=== PATIENT | female | born 1975 | race Two or more races ===

== ENCOUNTER 2017-03-29 19:49 | Inpatient (IN) | payer MEDICAID ==
[2017-03-29] VITALS (33 sets, daily range): BP systolic 100–263; BP diastolic 61–220; PULSE 67–104; RESP 18–24; TEMP 97.5–98.4; O2SAT 90–100
[~2017-03-29] VITALS: Ht 162.6 cm; Wt 75.0 kg
[~2017-03-29 19:49] MED LIST: LACTATED RINGER'S 1000 ML INJ 1,000 ML IV ONE; MORPHINE SULFATE PF 5 MG/10 ML VIAL EPIDURAL ONE; ONDANSETRON HCL 4 MG/2 ML VIAL IV PUSH ONE; OXYTOCIN 10 UNIT/ML AMP IV ONE
[2017-03-29] MEDS ORDERED: SODIUM CHLOR 0.9% 1000 ML INJ 1,000 ML IV SCH (20:05)
--- NOTE | 2017-03-29 20:09 | PD ---
HPI Chief Complaint: Abdominal Pain Time Seen by Provider: 20:07 Travel History International Travel<30 days: No Contact w/Intl Traveler<30days: No Traveled to known affect area: No History of Present Illness HPI c/o epig pain, nonrad, sharp, assoc with nausea and sweating, 02/11, no v/d/ ....patient is around 38 weeks gestation, is ...no allergy pt denies pshx and also pmhx at this point PFSH Past Medical History Medical History: Denies Significant Hx Diminished Hearing: No Tetanus Vaccination: Unknown Influenza Vaccination: No ?: LMP: DUE 04/10 : 7 Para: 7 Past Surgical History Surgical History: No Previous Surgery Social History Alcohol Use: No Tobacco Use: No Substance Use: No Allergies-Medications (Allergen,Severity, Reaction): Coded Allergies: No Known Allergies (Unverified , 03/29/17) Reported Meds & Prescriptions Reported Meds & Active Scripts Active No Active Prescriptions or Reported Medications Review of Systems Except as stated in HPI: all other systems reviewed are Neg Gastrointestinal: Positive: Nausea, Abdominal Pain (epig region pain onset 1 hr ago) Physical Exam Narrative GENERAL: SKIN: Warm and dry. HEAD: Atraumatic. Normocephalic. EYES: Pupils equal and round. No scleral icterus. No injection or drainage. ENT: No nasal bleeding or discharge. Mucous membranes pink and moist. NECK: Trachea midline. No JVD. CARDIOVASCULAR: Regular rate and rhythm. RESPIRATORY: No accessory muscle use. Clear to auscultation. Breath sounds equal bilaterally. GASTROINTESTINAL: Abdomen gravid about 9 months gestation, but has epig and ruq ttp...bedside manual showed cervix at fingertip without any vag bleeding MUSCULOSKELETAL: Extremities without clubbing, cyanosis, or edema. No obvious deformities. NEUROLOGICAL: Awake and alert. No obvious cranial nerve deficits. Motor grossly within normal limits. Five out of 5 muscle strength in the arms and legs. Normal speech. PSYCHIATRIC: Appropriate mood and affect; insight and judgment normal. Data Data Last Documented VS Vital Signs Date Time Temp Pulse Resp B/P (MAP) Pulse Ox O2 Delivery O2 Flow Rate FiO2 03/29/17 20:23 99 Room Air 03/29/17 20:00 24 03/29/17 19:57 98.4 104 Orders Orders Complete Blood Count With Diff (03/29/17 20:05) Comprehensive Metabolic Panel (03/29/17 20:05) Lipase (03/29/17 20:05) Iv Access Insert/Monitor (03/29/17 20:05) Ecg Monitoring (03/29/17 20:05) Oximetry (03/29/17 20:05) NPO (03/29/17 20:05) Morphine Inj (Morphine Inj) (03/29/17 20:15) Ondansetron Inj (Zofran Inj) (03/29/17 20:15) Sodium Chlor 0.9% 1000 Ml Inj (Ns 1000 M (03/29/17 20:05) Sodium Chloride 0.9% Flush (Ns Flush) (03/29/17 20:15) Electrocardiogram (03/29/17 20:05) Admit To Inpatient (03/29/17 ) Vital Signs (Adult) Q5MX4,Q15MX4,Q30MX2,Q1H (03/29/17 20:45) Activity Bed Rest (03/29/17 20:45) Intake + Output Q1H (03/29/17 20:45) Notify DrYemi Parameters (03/29/17 20:45) Heart CONTINUOUS (03/29/17 20:45) Urinary Catheter Management SUELLEN.Q8H (03/29/17 20:45) ^ Check Deep Tendon Reflexes Q1H (03/29/17 20:45) Lactated Ringer's 1000 Ml Inj (Lr 1000 M (03/29/17 21:00) Sodium Chloride 0.9% Flush (Ns Flush) (03/29/17 20:45) Sodium Chloride 0.9% Flush (Ns Flush) (03/29/17 21:00) Magnesium Sulfate 40 Gm Premix (Magnesiu (03/29/17 20:45) Labetalol Inj (Trandate Inj) (03/29/17 20:45) Calcium Gluconate Inj (Calcium Gluconate (03/29/17 20:45) Ondansetron Inj (Zofran Inj) (03/29/17 20:45) Urinalysis - C+S If Indicated (03/29/17 20:45) Magnesium Sulfate 4 Gm Premix (Magnesium (03/29/17 20:45) Ammonia (03/29/17 20:45) Inpatient Certification (03/29/17 ) Uric Acid (03/29/17 20:48) Heart (03/29/17 20:48) Amnioinfusion (03/29/17 20:48) Sodium Chlorid 0.9% 500 Ml Inj (Ns 500 M (03/29/17 21:00) Sodium Chlor 0.9% 1000 Ml Inj (Ns 1000 M (03/29/17 21:08) Lidocaine 1% Inj (50 Ml) (Xylocaine 1% I (03/29/17 21:00) Citric Acid-Sodium Citrate Liq (Bicitra (03/29/17 21:00) Fentanyl Inj (Fentanyl Inj) (03/29/17 21:00) Fentanyl Inj (Fentanyl Inj) (03/29/17 21:00) Hold Clot (03/29/17 20:48) Abo/Rh Blood Type (03/29/17 20:48) Resp Oxygen Non Rebreathe Mask (03/29/17 ) ^ Epidural / Intrathecal Infus (03/29/17 20:48) Oxytocin 30 Units-500ml Premix (Pitocin (03/29/17 21:00) Lidocaine 1% Inj (50 Ml) (Xylocaine 1% I (03/29/17 21:00) Light Mineral Oil (Muri-Lube Oil) (03/29/17 21:00) Lipase (03/29/17 20:48) Ob (2e) Additional Admit Info (03/29/17 20:59) Equip, Iv Pump Triple Use Of (03/29/17 20:59) Labs Laboratory Tests Test 03/29/17 20:10 03/29/17 20:48 White Blood Count 11.9 TH/MM3 Red Blood Count 5.01 MIL/MM3 Hemoglobin 16.1 GM/DL Hematocrit 46.9 % Mean Corpuscular Volume 93.6 FL Mean Corpuscular Hemoglobin 32.2 PG Mean Corpuscular Hemoglobin Concent 34.4 % Red Cell Distribution Width 13.4 % Platelet Count 171 TH/MM3 Mean Platelet Volume 12.5 FL Neutrophils (%) (Auto) 58.0 % Lymphocytes (%) (Auto) 35.8 % Monocytes (%) (Auto) 3.3 % Eosinophils (%) (Auto) 1.9 % Basophils (%) (Auto) 1.0 % Neutrophils # (Auto) 6.9 TH/MM3 Lymphocytes # (Auto) 4.3 TH/MM3 Monocytes # (Auto) 0.4 TH/MM3 Eosinophils # (Auto) 0.2 TH/MM3 Basophils # (Auto) 0.1 TH/MM3 CBC Comment AUTO DIFF Differential Total Cells Counted 100 Neutrophils % (Manual) 54 % Band Neutrophils % 2 % Lymphocytes % 34 % Monocytes % 8 % Eosinophils % 2 % Neutrophils # (Manual) 6.7 TH/MM3 Differential Comment FINAL DIFF MANUAL Atypical Lymphocytes % Platelet Estimate NORMAL Platelet Morphology Comment ENLARGED Ovalocytes 1+ Blood Urea Nitrogen 15 MG/DL Creatinine 0.72 MG/DL Random Glucose 100 MG/DL Total Protein 7.6 GM/DL Albumin 2.9 GM/DL Calcium Level 8.6 MG/DL Alkaline Phosphatase 275 U/L Aspartate Amino Transf (AST/SGOT) 105 U/L Alanine Aminotransferase (ALT/SGPT) 89 U/L Total Bilirubin 0.5 MG/DL Sodium Level 138 MEQ/L Potassium Level 3.6 MEQ/L Chloride Level 106 MEQ/L Carbon Dioxide Level 19.8 MEQ/L Anion Gap 12 MEQ/L Estimat Glomerular Filtration Rate 88 ML/MIN Lipase 114 U/L 110 U/L Uric Acid 6.7 MG/DL Ammonia 28 MCMOL/L MDM Medical Decision Making Medical Screen Exam Complete: Yes Emergency Medical Condition: Yes Medical Record Reviewed: Yes Differential Diagnosis gb disease v pancreatitis v labor v distress V HELLP V PREECLAMPSIA Narrative Course patient upon evaluation no evidence of active labor, no rupture of membranes clinically, cervix fingertip....however will send patient to ob for further evaluation. Procedures Procedure Narrative bedside ultrasound: showed enlarged gallbladder with multiple gravel like stones/sludge, no perichol fluid, no thickened gb wall. bedside limited pelvic: noted active heart tones and activity. Physician Communication Physician Communication care turned over to dr dumont for further care. Diagnosis Primary Impression: epigastric pain in Admitting Information Admitting Physician Requests: Observation Scripts No Active Prescriptions or Reported Meds Ashok Ortega MD Mar 29, 2017 20:09
[2017-03-29] MEDS ORDERED: MORPHINE SULFATE 4 MG/ML INJ IV PUSH ONE (20:15)
[2017-03-29] MEDS ORDERED: SODIUM CHLORIDE 0.9% FLUSH 10 ML FLUSH IV FLUSH PRN ×2 (20:15→23:15)
[2017-03-29] MEDS ORDERED: ONDANSETRON HCL 4 MG/2 ML VIAL IVP ONE (20:15)
[2017-03-29 20:42] LABS: AUTOMATED NEUTROPHIL # 6.9 TH/MM3 (1.8-7.7); BASOPHIL # 0.1 TH/MM3 (0-0.2); EOSINOPHIL # 0.2 TH/MM3 (0-0.4); EOSINOPHIL % 1.9 % (0.0-4.0); HEMATOCRIT 46.9 % (35.0-46.0); LYMPH % 35.8 % (9.0-44.0); LYMPHOCYTE # 4.3 TH/MM3 (1.0-4.8); MEAN CELL VOLUME 93.6 FL (80.0-100.0); MEAN CORPUSCULAR HEMOGLOBIN 32.2 PG (27.0-34.0); MEAN CORPUSCULAR HGB CONC 34.4 % (32.0-36.0); MONO % 3.3 % (0.0-8.0); PLATELET COUNT 171 TH/MM3 (150-450); RED BLOOD COUNT 5.01 MIL/MM3 (4.00-5.30); RED CELL DISTRIBUTION WIDTH 13.4 % (11.6-17.2); WHITE BLOOD COUNT 11.9 TH/MM3 (4.0-11.0)
[2017-03-29 20:45] LABS: HEMO FLAGS AUTO DIFF
[2017-03-29] MEDS ORDERED: ONDANSETRON HCL 4 MG/2 ML VIAL IV PRN (20:45)
[2017-03-29] MEDS ORDERED: SODIUM CHLORIDE 0.9% FLUSH 5 ML FLUSH IV PRN (20:45)
[2017-03-29] MEDS ORDERED: CALCIUM GLUCONATE 10% 1 GM/10 ML VIAL IV PUSH PRN (20:45)
[2017-03-29] MEDS ORDERED: MAGNESIUM SULFATE 40 GM PREMIX 1,000 ML IV SCH (20:45)
[2017-03-29] MEDS ORDERED: MAGNESIUM SULFATE 4 GM PREMIX 100 ML IV ONE (20:45)
[2017-03-29] MEDS ORDERED: LABETALOL HCL 100 MG/20 ML VIAL IV PUSH PRN (20:45)
[2017-03-29 20:49] LABS: ANION GAP 12 MEQ/L (5-15); AST (GOT) 105 U/L (15-37); BICARBONATE 19.8 MEQ/L (21.0-32.0); BLOOD UREA NITROGEN 15 MG/DL (7-18); CHLORIDE 106 MEQ/L (98-107); GLOMERULAR FILTRATION RATE 88 ML/MIN (>89); POTASSIUM 3.6 MEQ/L (3.5-5.1); SODIUM (NA) 138 MEQ/L (136-145)
[2017-03-29 20:50] LABS: ALT (GPT) 89 U/L (10-53)
[2017-03-29 20:52] LABS: ALKALINE PHOSPHATASE 275 U/L (45-117); TOTAL BILIRUBIN ADULT 0.5 MG/DL (0.2-1.0)
[2017-03-29] MEDS ORDERED: MINERAL OIL 10 ML VIAL TOPICAL PRN (21:00)
[2017-03-29] MEDS ORDERED: OXYTOCIN 30 UNITS-500ML PREMIX 500 ML IV ONE ×2 (21:00→23:15)
[2017-03-29] MEDS ORDERED: LACTATED RINGER'S 1000 ML INJ 1,000 ML IV SCH (21:00)
[2017-03-29] MEDS ORDERED: SODIUM CHLORID 0.9% 500 ML INJ 500 ML IV PRN (21:00)
[2017-03-29] MEDS ORDERED: LIDOCAINE HCL 1% 50 ML VIAL I-DERMAL PRN (21:00)
[2017-03-29] MEDS ORDERED: CITRIC ACID-SODIUM CITRATE LIQ 30 ML UDC PO SCH (21:00)
[2017-03-29] MEDS ORDERED: LIDOCAINE HCL 1% 50 ML VIAL INFIL PRN (21:00)
[2017-03-29] MEDS ORDERED: SODIUM CHLORIDE 0.9% FLUSH 5 ML FLUSH IV SCH (21:00)
--- NOTE | 2017-03-29 21:07 | PD ---
HPI Chief Complaint Severe epigastric pain Date Seen: Mar 29, 2017 Time Seen: 20:52 Travel History International Travel<30 Days: No Contact w/Intl Traveler<30Days: No Known Affected Area: No History of Present Illness HPI 42-year-old who is at 38 weeks 5 days who sees Jenni Brito for her care presents here transferred from the main emergency department due to severe epigastric pain. Patient was seen in the main emergency department and an EKG was performed which was normal and an right upper quadrant ultrasound showed gallstones. Blood work was ordered but there are no results yet, she was given morphine for pain the patient states that she still has severe epigastric pain that started approximately one hour ago. Patient denies any antepartum complications at this time. Patient denies vaginal bleeding or uterine contractions Weeks Gestation: 38 (38.5) Para: 7 : 8 History Past Medical History Medical History: Denies Significant Hx Obstetric History Obstetric History 7 Past Surgical History Surgical History: No Previous Surgery Family History Family History: Negative Social History Alcohol Use: No Tobacco Use: No Substance Abuse: No Allergies-Medications (Allergen,Severity, Reaction): Coded Allergies: No Known Allergies (Unverified , 03/29/17) Home Meds No Active Prescriptions or Reported Meds Review of Systems Except as stated in HPI: all other systems reviewed are Neg Physical Exam Vital Signs Date Time Temp Pulse Resp B/P (MAP) Pulse Ox O2 Delivery O2 Flow Rate FiO2 03/29/17 20:23 99 Room Air 03/29/17 20:23 03/29/17 20:00 24 03/29/17 19:57 98.4 104 24 137/96 (110) 98 03/29/17 19:50 98.0 76 22 186/100 (128) 90 Room Air Narrative GENERAL: Well-nourished, well-developed patient. Patient is writhing in the bed and is unable to stay still. SKIN: Warm and dry. HEAD: Normocephalic and atraumatic. EYES: No scleral icterus. No injection or drainage. ENT: No nasal drainage noted. Mucous membranes pink. Airway patent. NECK: Supple, trachea midline. No JVD. CARDIOVASCULAR: Regular rate and rhythm without murmurs, gallops, or rubs. RESPIRATORY: Breath sounds equal bilaterally. No accessory muscle use. ABDOMEN/GI: Abdomen tender in the epigastric area bowel sounds present, no rebound, some guarding. Gravid to [-38] weeks size Fundal Height: [-] GENITOURINARY: External Genitalia: intact and normal in appearance BUS glands: [-Normal] Cervix: [-Posterior] Dilatation: [-1] Effacement: [-80] Station: [--2] Presentation: [-Vertex] Membranes: [intact or] Uterine Contractions: [Absent] FHT's: Category: [1-] Baseline: [-140] Reactive: [Moderate-] Variability: [-Moderate] Decels: [-Absent] EXTREMITIES: No cyanosis or edema. BACK: Nontender without obvious deformity. No CVA tenderness. NEUROLOGICAL: Awake and alert. Motor and sensory grossly within normal limits. Five out of 5 muscle strength in all muscle groups. Normal speech. Data Data Vital Signs Reviewed: Yes Orders Orders Complete Blood Count With Diff (03/29/17 20:05) Comprehensive Metabolic Panel (03/29/17 20:05) Lipase (03/29/17 20:05) Us Abdomen Gallbladder (03/29/17 ) Iv Access Insert/Monitor (03/29/17 20:05) Ecg Monitoring (03/29/17 20:05) Oximetry (03/29/17 20:05) NPO (03/29/17 20:05) Morphine Inj (Morphine Inj) (03/29/17 20:15) Ondansetron Inj (Zofran Inj) (03/29/17 20:15) Sodium Chlor 0.9% 1000 Ml Inj (Ns 1000 M (03/29/17 20:05) Sodium Chloride 0.9% Flush (Ns Flush) (03/29/17 20:15) Electrocardiogram (03/29/17 20:05) Admit To Inpatient (03/29/17 ) Vital Signs (Adult) Q5MX4,Q15MX4,Q30MX2,Q1H (03/29/17 20:45) Activity Bed Rest (03/29/17 20:45) Intake + Output Q1H (03/29/17 20:45) Notify Parameters (03/29/17 20:45) Heart CONTINUOUS (03/29/17 20:45) Urinary Catheter Management SUELLEN.Q8H (03/29/17 20:45) ^ Check Deep Tendon Reflexes Q1H (03/29/17 20:45) Diet Npo (03/30/17 Breakfast) Lactated Ringer's 1000 Ml Inj (Lr 1000 M (03/29/17 20:45) Sodium Chloride 0.9% Flush (Ns Flush) (03/29/17 20:45) Sodium Chloride 0.9% Flush (Ns Flush) (03/29/17 21:00) Magnesium Sulfate 40 Gm Premix (Magnesiu (03/29/17 20:45) Labetalol Inj (Trandate Inj) (03/29/17 20:45) Calcium Gluconate Inj (Calcium Gluconate (03/29/17 20:45) Ondansetron Inj (Zofran Inj) (03/29/17 20:45) Uric Acid (03/29/17 20:45) Urinalysis - C+S If Indicated (03/29/17 20:45) Magnesium Sulfate 4 Gm Premix (Magnesium (03/29/17 20:45) Lipase (03/29/17 20:45) Ammonia (03/29/17 20:45) Inpatient Certification (03/29/17 ) Uric Acid (03/29/17 20:48) Heart (03/29/17 20:48) Amnioinfusion (03/29/17 20:48) Sodium Chlorid 0.9% 500 Ml Inj (Ns 500 M (03/29/17 21:00) Sodium Chlor 0.9% 1000 Ml Inj (Ns 1000 M (03/29/17 21:08) Lidocaine 1% Inj (50 Ml) (Xylocaine 1% I (03/29/17 21:00) Citric Acid-Sodium Citrate Liq (Bicitra (03/29/17 21:00) Fentanyl Inj (Fentanyl Inj) (03/29/17 21:00) Fentanyl Inj (Fentanyl Inj) (03/29/17 21:00) Hold Clot (03/29/17 20:48) Abo/Rh Blood Type (03/29/17 20:48) Resp Oxygen Non Rebreathe Mask (03/29/17 ) ^ Epidural / Intrathecal Infus (03/29/17 20:48) Oxytocin 30 Units-500ml Premix (Pitocin (03/29/17 21:00) Lidocaine 1% Inj (50 Ml) (Xylocaine 1% I (03/29/17 21:00) Light Mineral Oil (Muri-Lube Oil) (03/29/17 21:00) Labs Laboratory Tests Test 03/29/17 20:10 White Blood Count 11.9 Red Blood Count 5.01 Hemoglobin 16.1 Hematocrit 46.9 Mean Corpuscular Volume 93.6 Mean Corpuscular Hemoglobin 32.2 Mean Corpuscular Hemoglobin Concent 34.4 Red Cell Distribution Width 13.4 Platelet Count 171 Mean Platelet Volume 12.5 Neutrophils (%) (Auto) 58.0 Lymphocytes (%) (Auto) 35.8 Monocytes (%) (Auto) 3.3 Eosinophils (%) (Auto) 1.9 Basophils (%) (Auto) 1.0 Neutrophils # (Auto) 6.9 Lymphocytes # (Auto) 4.3 Monocytes # (Auto) 0.4 Eosinophils # (Auto) 0.2 Basophils # (Auto) 0.1 CBC Comment AUTO DIFF Blood Urea Nitrogen 15 Creatinine 0.72 Random Glucose 100 Albumin 2.9 Calcium Level 8.6 Aspartate Amino Transf (AST/SGOT) 105 Alanine Aminotransferase (ALT/SGPT) 89 Sodium Level 138 Potassium Level 3.6 Chloride Level 106 Carbon Dioxide Level 19.8 Anion Gap 12 Estimat Glomerular Filtration Rate 88 Lipase 114 MDM Plan 42-year-old who is at 38 weeks 5 days presents with severe epigastric pain. - Category 1 heart rate tracing GBS unknown #1 epigastric pain-very difficult to assess the patient is somewhat out of control and cannot stay still. Initial blood pressure was 192/140 so will start severe hypertension protocol with magnesium sulfate IV and IV antihypertensives to stabilize the patient at this point. Labs are still pending but EKG rules out a cardiac concern at this point. #2 severe preeclampsia - Increased hematocrit, slightly decreased platelets, and elevated AST along with severely elevated blood pressure. Patient understands that may be warranted after stabilizing blood pressure #3 - Advanced maternal age Diagnosis Diagnosis: Primary Impression: 38 weeks gestation of Additional Impressions: Severe pre-eclampsia Advanced maternal age in multigravida Scripts No Active Prescriptions or Reported Meds Dayana Bartholomew MD Mar 29, 2017 21:07
[2017-03-29] MEDS ORDERED: SODIUM CHLOR 0.9% 1000 ML INJ 1,000 ML IV PRN (21:08)
[2017-03-29] MEDS ORDERED: ONDANSETRON HCL 4 MG/2 ML VIAL IV PUSH PRN (21:15)
[2017-03-29 21:18] LABS: URIC ACID 6.7 MG/DL (2.6-6.0)
[2017-03-29 21:25] LABS: BANDS 2 % (0-6); EOSINOPHILS 2 % (0-4); NEUTROPHIL # MANUAL DIFF 6.7 TH/MM3 (1.8-7.7); POLYS (SEG NEUTROPHILS) 54 % (16-70); WBC DIFF SAMPLE 100
[2017-03-29 21:31] LABS: PLATELET ESTIMATE SMEAR NORMAL (NORMAL); PLATELET MORPHOLOGY ENLARGED (NORMAL); SCAN/DIFF FINAL DIFF MANUAL
[2017-03-29 21:32] LABS: OVALOCYTES 1+ (NORMAL)
[2017-03-29] MEDS ORDERED: ceFAZolin 2 GM PREMIX 50 ML IV SCH (21:45)
[2017-03-29 21:50] LABS: BLOOD, URINE SMALL (NEG); GLUCOSE,URINE NEG (NEG); KETONE, URINE NEG (NEG); NITRITE,URINE NEG (NEG); SQUAMOUS EPITHELIAL CELL URINE <1 /hpf (0-5); URINE COLOR YELLOW (YELLW/STRAW)
[2017-03-29 21:53] LABS: COMMENT (UR) CATH-CULT NOT IND; CULTURE IF INDICATED CATH CULTURE NOT IND
--- NOTE | 2017-03-29 23:03 | PD.OB.DELI ---
Procedure Note Section Procedure Pre Op Diagnosis: (1) Severe pre-eclampsia (2) 38 weeks gestation of (3) Advanced maternal age in multigravida Post Op Diagnosis: Performed by Dayana Bartholomew Procedure: Primary Low Transverse Sec, Other (bilateral midsegment salpingectomy) Indication for delivery: Maternal medical problems Previous condition: None Informed consent obtained: For anesthesia, For procedure Confirmed correct: Time-out taken Anesthesia: Spinal Medication prior to procedure: Antibiotics, IV, Magnesium Sulfate Monitoring during procedure: Blood pressure monitoring, Pulse oximetry Urinary catheter: Inserted using sterile technique, To dependent drainage Sterile preparation: Duraprep Position: Supine with wedge to left side Operative Features Skin Incision: Pfannenstiel Uterine Incision: Low transverse w/knife / blunt ext Membranes Ruptured: Artificially, Appearance of fluid (clear) Presentation: Occiput anterior Delivery date: Mar 29, 2017 Delivery time: 22:31 Delivery of : Uneventful : Male, Single One Minute : 8 Five Minute : 9 Weight: 2660gms Status of infant: Viable Placenta delivered: Intact Medications: Antibiotics Estimated blood loss: 800cc Procedure tolerated: Well Maternal Condition: Stable Condition: Stable Dayana Bartholomew MD Mar 29, 2017 23:03
[2017-03-29] MEDS ORDERED: oxyCODONE/ACETAMINOPHEN 5 MG/325 MG TAB PO PRN ×2 (23:15)
[2017-03-29] MEDS ORDERED: SIMETHICONE 80 MG CHEWABLE TAB PO PRN (23:15)
[2017-03-30] VITALS (153 sets, daily range): BP systolic 98–142; BP diastolic 67–97; PULSE 77–106; RESP 14–18; TEMP 96.7–98.4; O2SAT 94–100
[2017-03-30] MEDS: LACTATED RINGER'S 1000 ML INJ 1,000 ML IV SCH ×2 (04:03→14:03)
[2017-03-30 06:02] LABS: AUTOMATED NEUTROPHIL # 12.4 TH/MM3 (1.8-7.7); BASOPHIL % 0.3 % (0.0-2.0); HEMATOCRIT 33.5 % (35.0-46.0); LYMPH % 6.9 % (9.0-44.0); MEAN CELL VOLUME 92.4 FL (80.0-100.0); MEAN CORPUSCULAR HEMOGLOBIN 31.9 PG (27.0-34.0); MEAN CORPUSCULAR HGB CONC 34.5 % (32.0-36.0); MONO % 6.6 % (0.0-8.0); NEUT % 86.2 % (16.0-70.0); PLATELET COUNT 40 TH/MM3 (150-450); RED BLOOD COUNT 3.62 MIL/MM3 (4.00-5.30); RED CELL DISTRIBUTION WIDTH 13.2 % (11.6-17.2); WHITE BLOOD COUNT 14.3 TH/MM3 (4.0-11.0)
[2017-03-30 06:07] LABS: HEMO FLAGS AUTO DIFF
[2017-03-30 06:39] LABS: ALKALINE PHOSPHATASE 198 U/L (45-117); ALT (GPT) 1207 U/L (10-53); ANION GAP 13 MEQ/L (5-15); AST (GOT) 3044 U/L (15-37); BICARBONATE 21.4 MEQ/L (21.0-32.0); BLOOD UREA NITROGEN 19 MG/DL (7-18); CHLORIDE 104 MEQ/L (98-107); GLOMERULAR FILTRATION RATE 69 ML/MIN (>89); POTASSIUM 3.4 MEQ/L (3.5-5.1); SODIUM (NA) 138 MEQ/L (136-145); TOTAL BILIRUBIN ADULT 4.5 MG/DL (0.2-1.0)
[2017-03-30] MEDS: SODIUM CHLORIDE 0.9% FLUSH 10 ML FLUSH IV FLUSH SCH ×2 (08:00→21:00)
[2017-03-30 08:10] LABS: BANDS 8 % (0-6); NEUTROPHIL # MANUAL DIFF 12.9 TH/MM3 (1.8-7.7); PLATELET ESTIMATE SMEAR LOW (NORMAL); PLATELET MORPHOLOGY NORMAL (NORMAL); POLYS (SEG NEUTROPHILS) 82 % (16-70); SCAN/DIFF FINAL DIFF MANUAL; WBC DIFF SAMPLE 100
--- NOTE | 2017-03-30 08:12 | HHI.OB ---
Subjective Post Operative Day: 0 Remarks Patient feel much improved compared to prior to surgery. Epigastric and right upper quadrant pain are much improved. Complaints of mild incisional pain only. Objective Vitals/I&O Vital Signs Date Time Temp Pulse Resp B/P (MAP) Pulse Ox O2 Delivery O2 Flow Rate FiO2 03/29/17 20:23 99 Room Air 03/29/17 20:23 03/29/17 20:00 24 03/29/17 19:57 98.4 104 24 137/96 (110) 98 03/29/17 19:50 98.0 76 22 186/100 (128) 90 Room Air Blood Pressure 110/70, 108/72 Result Diagram: 03/30/1742603/30/17426 Objective Remarks GENERAL: Well-nourished, well-developed patient. Icterus is noted this morning CARDIOVASCULAR: Regular rate and rhythm without murmurs, gallops, or rubs. RESPIRATORY: Breath sounds equal bilaterally. No accessory muscle use. ABDOMEN/GI: Abdomen soft, non-tender, bowel sounds present. Incision: Clean, dry and intact. Dressing is dry, no bleeding is noted. Fundus: Firm, non-tender at umbilicus. GENITOURINARY: Light to moderate bleeding. EXTREMITIES: No cyanosis or edema, non-tender, without signs of DVT. Medications and IVs Current Medications Medications (Trade) Dose Ordered Sig/Adama Route Start Time Stop Time Status Last Admin (Trandate Inj) 20 mg NOW PRN IV PUSH 03/29/17 20:45 03/31/17 20:44 (Calcium Gluconate Inj) 1 gm UNSCH PRN IV PUSH 03/29/17 20:45 (Bicitra Liq) 30 ml FURNACE KEEPER PO 03/29/17 21:00 04/02/17 20:59 03/29/17 22:06 Cefazolin Sodium/ Dextrose 50 ml @ 100 mls/hr FURNACE KEEPER IV 03/29/17 21:45 04/02/17 21:44 03/29/17 22:06 Lactated Ringer's 1,000 ml @ 100 mls/hr Q10H IV 03/30/17 04:03 03/31/17 00:02 03/30/17 04:03 Oxytocin 500 ml @ 100 mls/hr UNSCH X1 PRN IV 03/30/17 09:15 03/31/17 09:14 (NS Flush) 2 ml BID IV FLUSH 03/30/17 09:00 (NS Flush) 2 ml UNSCH PRN IV FLUSH 03/29/17 23:15 (Mylicon Chew) 80 mg QID PRN PO 03/29/17 23:15 (Motrin) 600 mg Q6H PRN PO 03/29/17 23:15 (Percocet 5-325 Mg) 1 tab Q4H PRN PO 03/29/17 23:15 (Percocet 5-325 Mg) 2 tab Q4H PRN PO 03/29/17 23:15 (M-M-R Ii Inj) 0.5 ml ONCE ONCE SQ 03/30/17 16:00 03/30/17 16:01 (Boostrix Inj) 0.5 ml ONCE ONCE IM 03/30/17 16:00 03/30/17 16:01 Assessment/Plan Problem List: (1) delivery delivered ICD Codes: O82 - Encounter for delivery without indication (2) HELLP syndrome ICD Codes: O14.20 - HELLP syndrome (HELLP), unspecified trimester (3) Severe pre-eclampsia ICD Codes: O14.10 - Severe pre-eclampsia, unspecified trimester Status: Acute (4) 38 weeks gestation of ICD Codes: Z3A.38 - 38 weeks gestation of Status: Acute (5) Advanced maternal age in multigravida ICD Codes: O09.529 - Supervision of elderly multigravida, unspecified trimester Status: Acute Assessment and Plan 42yo G8 now P8 delivered via due to severe preeclampsia and HELLP syndrome 1. Platelets 40K, will order stat repeat value and consider platelet transfusion if continues to decline or patient show clinical manifestations of thrombocytopenia 2. Severe preeclampsia - Blood pressure much improved with labetalol, will continue magnesium sulfate for full 24 hours. Check magnesium level 3. Liver enzymes elevated due to disease. Will continue to follow labs and will expect improvement in the next couple of days. Clinically, patient has no additional epigastric pain but has icterus c/w elevation in total bili. Will consult GI to ensure no additional interventions are needed 4. Advanced maternal age 5. Post op Day 0 6. Minimal care during Dayana Bartholomew MD Mar 30, 2017 08:12
[2017-03-30 08:23] LABS: AUTOMATED NEUTROPHIL # 13.6 TH/MM3 (1.8-7.7); BASOPHIL % 0.1 % (0.0-2.0); HEMATOCRIT 31.9 % (35.0-46.0); LYMPH % 5.9 % (9.0-44.0); LYMPHOCYTE # 0.9 TH/MM3 (1.0-4.8); MEAN CELL VOLUME 92.5 FL (80.0-100.0); MEAN CORPUSCULAR HEMOGLOBIN 32.9 PG (27.0-34.0); MEAN CORPUSCULAR HGB CONC 35.6 % (32.0-36.0); MONO % 4.3 % (0.0-8.0); NEUT % 89.7 % (16.0-70.0); PLATELET COUNT 38 TH/MM3 (150-450); RED BLOOD COUNT 3.45 MIL/MM3 (4.00-5.30); RED CELL DISTRIBUTION WIDTH 13.1 % (11.6-17.2); WHITE BLOOD COUNT 15.2 TH/MM3 (4.0-11.0)
[2017-03-30 08:34] LABS: HEMO FLAGS AUTO DIFF
[2017-03-30 08:55] LABS: TOTAL BILIRUBIN ADULT 4.7 MG/DL (0.2-1.0)
--- NOTE | 2017-03-30 09:00 | HHI.PR ---
CONSTRUCTION RIGGER Note Note Laboratory Tests Test 03/29/17 20:10 03/29/17 20:48 03/29/17 21:20 03/30/17 04:27 White Blood Count 11.9 TH/MM3 14.3 TH/MM3 Red Blood Count 5.01 MIL/MM3 3.62 MIL/MM3 Hemoglobin 16.1 GM/DL 11.6 GM/DL Hematocrit 46.9 % 33.5 % Mean Corpuscular Volume 93.6 FL 92.4 FL Mean Corpuscular Hemoglobin 32.2 PG 31.9 PG Mean Corpuscular Hemoglobin Concent 34.4 % 34.5 % Red Cell Distribution Width 13.4 % 13.2 % Platelet Count 171 TH/MM3 40 TH/MM3 Mean Platelet Volume 12.5 FL 9.1 FL Neutrophils (%) (Auto) 58.0 % 86.2 % Lymphocytes (%) (Auto) 35.8 % 6.9 % Monocytes (%) (Auto) 3.3 % 6.6 % Eosinophils (%) (Auto) 1.9 % 0.0 % Basophils (%) (Auto) 1.0 % 0.3 % Neutrophils # (Auto) 6.9 TH/MM3 12.4 TH/MM3 Lymphocytes # (Auto) 4.3 TH/MM3 1.0 TH/MM3 Monocytes # (Auto) 0.4 TH/MM3 0.9 TH/MM3 Eosinophils # (Auto) 0.2 TH/MM3 0.0 TH/MM3 Basophils # (Auto) 0.1 TH/MM3 0.0 TH/MM3 CBC Comment AUTO DIFF AUTO DIFF Differential Total Cells Counted 100 100 Neutrophils % (Manual) 54 % 82 % Band Neutrophils % 2 % 8 % Lymphocytes % 34 % 5 % Monocytes % 8 % 5 % Eosinophils % 2 % Neutrophils # (Manual) 6.7 TH/MM3 12.9 TH/MM3 Differential Comment FINAL DIFF MANUAL FINAL DIFF MANUAL Atypical Lymphocytes % Platelet Estimate NORMAL LOW Platelet Morphology Comment ENLARGED NORMAL Ovalocytes 1+ Blood Urea Nitrogen 15 MG/DL 19 MG/DL Creatinine 0.72 MG/DL 0.89 MG/DL Random Glucose 100 MG/DL 112 MG/DL Total Protein 7.6 GM/DL 5.2 GM/DL Albumin 2.9 GM/DL 2.0 GM/DL Calcium Level 8.6 MG/DL 7.8 MG/DL Alkaline Phosphatase 275 U/L 198 U/L Aspartate Amino Transf (AST/SGOT) 105 U/L 3044 U/L Alanine Aminotransferase (ALT/SGPT) 89 U/L 1207 U/L Total Bilirubin 0.5 MG/DL 4.5 MG/DL Sodium Level 138 MEQ/L 138 MEQ/L Potassium Level 3.6 MEQ/L 3.4 MEQ/L Chloride Level 106 MEQ/L 104 MEQ/L Carbon Dioxide Level 19.8 MEQ/L 21.4 MEQ/L Anion Gap 12 MEQ/L 13 MEQ/L Estimat Glomerular Filtration Rate 88 ML/MIN 69 ML/MIN Lipase 114 U/L 110 U/L Uric Acid 6.7 MG/DL Ammonia 28 MCMOL/L Urine Color YELLOW Urine Turbidity CLEAR Urine pH 6.0 Urine Specific [place] 1.022 Urine Protein 100 mg/dL Urine Glucose (UA) NEG mg/dL Urine Ketones NEG mg/dL Urine Occult Blood SMALL Urine Nitrite NEG Urine Bilirubin NEG Urine Urobilinogen LESS THAN 2.0 MG/DL Urine Leukocyte Esterase NEG Urine RBC 4 /hpf Urine WBC 1 /hpf Urine Squamous Epithelial Cells <1 /hpf Microscopic Urinalysis Comment CATH-CULT NOT IND Test 03/30/17 08:00 White Blood Count 15.2 TH/MM3 Red Blood Count 3.45 MIL/MM3 Hemoglobin 11.3 GM/DL Hematocrit 31.9 % Mean Corpuscular Volume 92.5 FL Mean Corpuscular Hemoglobin 32.9 PG Mean Corpuscular Hemoglobin Concent 35.6 % Red Cell Distribution Width 13.1 % Platelet Count 38 TH/MM3 Mean Platelet Volume 9.1 FL Neutrophils (%) (Auto) 89.7 % Lymphocytes (%) (Auto) 5.9 % Monocytes (%) (Auto) 4.3 % Eosinophils (%) (Auto) 0.0 % Basophils (%) (Auto) 0.1 % Neutrophils # (Auto) 13.6 TH/MM3 Lymphocytes # (Auto) 0.9 TH/MM3 Monocytes # (Auto) 0.7 TH/MM3 Eosinophils # (Auto) 0.0 TH/MM3 Basophils # (Auto) 0.0 TH/MM3 CBC Comment AUTO DIFF Magnesium Level 13.2 MG/DL Total Bilirubin 4.7 MG/DL Direct Bilirubin 2.7 MG/DL Indirect Bilirubin 2.0 MG/DL Aspartate Amino Transf (AST/SGOT) 2425 U/L Alanine Aminotransferase (ALT/SGPT) 1084 U/L Alkaline Phosphatase 187 U/L Total Protein 4.9 GM/DL Albumin 2.0 GM/DL Addendum to previous note 1. elevated magnesium level - will discontinue then recheck in 2 hours 2. Discussed care with Dr Payne who will consult. Ultrasound of liver pending at this time Dayana Bartholomew MD Mar 30, 2017 09:00
[2017-03-30 09:13] LABS: BANDS 12 % (0-6); PLATELET ESTIMATE SMEAR LOW (NORMAL); PLATELET MORPHOLOGY NORMAL (NORMAL); POLYS (SEG NEUTROPHILS) 87 % (16-70); SCAN/DIFF FINAL DIFF MANUAL; WBC DIFF SAMPLE 100
[2017-03-30] MEDS ORDERED: OXYTOCIN 30 UNITS-500ML PREMIX 500 ML IV PRN (09:15)
--- NOTE | 2017-03-30 09:16 | MP ---
cc: KAYLIE ELLIS M.D. DATE OF SURGERY 03/29/2017 SURGEON MD [place] PREOPERATIVE DIAGNOSES 1. Severe preeclampsia remote from delivery. 2. 38 weeks gestation. 3. Advanced maternal age. 4. Desires permanent sterilization. POSTOPERATIVE DIAGNOSES 1. Severe preeclampsia remote from delivery. 2. 38 weeks gestation. 3. Advanced maternal age. 4. Desires permanent sterilization. PROCEDURE Primary low transverse section without extension. Bilateral mid-segment salpingectomy. ESTIMATED BLOOD LOSS 800 cc ANESTHESIA Spinal. MEDICATIONS Ancef 2 grams was given preoperatively. Magnesium sulfate 2 grams per hour was continued during the case. COMPLICATIONS No complications. COUNTS Correct x 3. DRAINS Barrera to gravity. FINDINGS 1. Normal uterus, tubes and ovaries. 2. Clear amniotic fluid. 3. Infant male in a vertex presentation. Apgars were 8 and 9. Weight was 2660 grams with clear amniotic fluid. 4. Normal placenta was noted. DESCRIPTION OF PROCEDURE The patient was taken back to the operative room, prepped and draped in the usual sterile fashion, placed in dorsal supine position with a wedge to her left side. After adequate anesthetic was obtained, a Pfannenstiel incision was made into the skin, taken down to the fascia. The fascia was nicked in the midline, extended bilaterally and taken off the rectus muscles. The muscles were divided in the midline. The anterior perineum was entered. A transverse hysterotomy incision was made above the vesicouterine peritoneum and was extended bluntly bilaterally. The bag of water was ruptured with clear fluid. The infant was delivered to the operative field. A 45-second cord clamping delay was completed before delivery of the placenta and handing off the to the resuscitation team. The endometrial cavity was curetted with a moist laparotomy sponge. The hysterotomy incision was repaired using running locking #1 chromic suture with good hemostasis at closure. Gutters were rendered free of all blood and clot material. The right tube was grasped in the mid-segment portion and a window was made in the mesosalpinx where two #1 chromic sutures were placed and the intervening segment of tube was removed. The left tube was approached in a similar manner. The peritoneum was closed with a running suture of 3-0 plain gut. The fascia was closed with a #1 PDS. The subcutaneous tissue was made hemostatic with the Bovie and closed with a running suture of 3-0 plain. A subcuticular suture was placed into the skin with a 4-0 Monocryl. The patient was taken back to the recovery room in good condition. MD EVERETT Dolan/BOO /11:07 PM /8:58 AM
--- NOTE | 2017-03-30 11:37 | EKG ---
Date Performed: 03/29/2017 Time Performed: 20:03:55 PTAGE: 42 years EKG: Sinus rhythm NORMAL ECG INTERPRETATION BASED ON A DEFAULT AGE OF 38 YEARS NO PREVIOUS TRACING DOCTOR: Helio Greenberg Interpretating Date/Time 03/30/2017 11:35:55
--- NOTE | 2017-03-30 11:43 | RADRPT ---
EXAM DATE/TIME: 03/30/2017 09:14 [place] COMPARISON: No previous studies available for comparison. INDICATIONS : HELLP syndrome with elevated liver enzymes. MEDICAL HISTORY : Preeclampsia. HELLP syndrome. SURGICAL HISTORY : section. ENCOUNTER: Initial ACUITY: 1 day PAIN SCORE: 5/10 LOCATION: Abdomen. MEASUREMENTS: LIVER: 16.5 cm length COMMON DUCT: 4 mm RIGHT KIDNEY: 13.1 x 5.5 x 7.3 cm SPLEEN: 11.1 cm length FINDINGS: Small right pleural effusion. LIVER: Normal echotexture without focal lesion or ductal dilatation. COMMON DUCT: No intraluminal mass or stone visualized. GALLBLADDER: Abnormal with moderate diffuse wall thickening. Sludge and gallbladder neck stone area in pericholecy stic fluid which is nonspecific in light of fluid elsewhere PANCREAS: The visualized portions are within normal limits. RIGHT KIDNEY: Small volume of perinephric fluid. SPLEEN: No focal lesion. CONCLUSION: Gallstones and gallbladder sludge. Moderate wall thickening. Free fluid noted as outlined above inclu ding pericholecystic fluid. Harshal Owen MD on March 30, 2017 at 10:09 Board Certified Radiologist. This report was verified electronically.
[2017-03-30 12:10] LABS: MEAN CELL VOLUME 91.8 FL (80.0-100.0); MEAN CORPUSCULAR HEMOGLOBIN 32.9 PG (27.0-34.0); MEAN CORPUSCULAR HGB CONC 35.8 % (32.0-36.0); PLATELET COUNT 47 TH/MM3 (150-450); RED BLOOD COUNT 3.49 MIL/MM3 (4.00-5.30); RED CELL DISTRIBUTION WIDTH 13.2 % (11.6-17.2); WHITE BLOOD COUNT 15.8 TH/MM3 (4.0-11.0)
[2017-03-30 12:13] LABS: REVIEW FLAG FINAL
[2017-03-30 12:54] LABS: ALKALINE PHOSPHATASE 188 U/L (45-117); ALT (GPT) 982 U/L (10-53); ANION GAP 10 MEQ/L (5-15); AST (GOT) 1808 U/L (15-37); BICARBONATE 20.7 MEQ/L (21.0-32.0); BLOOD UREA NITROGEN 23 MG/DL (7-18); CHLORIDE 105 MEQ/L (98-107); GLOMERULAR FILTRATION RATE 47 ML/MIN (>89); MAGNESIUM 8.2 MG/DL (1.5-2.5); POTASSIUM 4.1 MEQ/L (3.5-5.1); SODIUM (NA) 136 MEQ/L (136-145); TOTAL BILIRUBIN ADULT 3.7 MG/DL (0.2-1.0)
--- NOTE | 2017-03-30 13:00 | PD.CONS ---
HPI History of Present Illness This is a 42 year old female who was 38 weeks and presented to the emergency room for evaluation of severe epigastric pain. She is Luxembourgish speaking and therefore the [employer] [facility] Service #[id number] was used. She states that this was a severe constant squeezing/pressure in her epigastric area that radiated to her RUQ. There was no associated nausea/vomiting and she denies any bleeding- such as hematemesis, melena, or hematochezia. She had some associated shortness of breath. There were no aggravating factors. She was found to have severe pre-eclampsia with significantly elevated LFTs and thrombocytopenia consistent with HELLP syndrome and was subsequently admitted and scheduled for emergent delivery via . She reports that this was done yesterday. Since her , she is no longer having the epigastric pain that brought her here to the hospital. She is having "extreme thirst" and nausea today. However, she only has mild "soreness from my operation." She has a small amount of vaginal bleeding, but states this is a small amount. She denies any history of known liver disease or hepatitis in herself or family members. She does not drink ETOH. She denies any new medications or herbal supplements. Liver US (03/30/17)----> Gallstones and gallbladder sludge. Moderate wall thickening. Free fluid noted as outlined above, including pericholecystic fluid. (Joyce Hernandez) PFSH Past Medical History Denies Past Surgical History Denies (Joyce Hernandez) Coded Allergies: No Known Allergies (Unverified , 03/29/17) Medications Allergies Coded Allergies Type Severity Reaction Last Updated Verified No Known Allergies 03/29/17 No Active Scripts Medications Dose Route/Sig Max Daily Dose Days Date Category No Active Prescriptions or Reported Medications Rx Family History Denies Social History No tobacco, etoh, or illicit drug use. (Joyce Hernandez) Review of Systems Constitutional: DENIES: Fatigue Eyes: COMPLAINS OF: Blurred vision Respiratory: COMPLAINS OF: Shortness of breath, DENIES: Cough Gastrointestinal: COMPLAINS OF: Abdominal pain, Nausea, DENIES: Black stools, Bloody stools, Constipation, Diarrhea, Vomiting, Heartburn, Hematemesis Hematologic/lymphatic: DENIES: Bruising Psychiatric: DENIES: Confusion (Joyce Hernandez) GI Exam Vitals I&O Vital Signs Date Time Temp Pulse Resp B/P (MAP) Pulse Ox O2 Delivery O2 Flow Rate FiO2 03/29/17 20:23 99 Room Air 03/29/17 20:23 03/29/17 20:00 24 03/29/17 19:57 98.4 104 24 137/96 (110) 98 03/29/17 19:50 98.0 76 22 186/100 (128) 90 Room Air Imaging Last Impressions Liver Ultrasound 03/30/17 0000 Signed Impressions: Service Date/Time: Thursday, March 30, 2017 09:14 - CONCLUSION: Gallstones and gallbladder sludge. Moderate wall thickening. Free fluid noted as outlined above including pericholecystic fluid. Harshal Owen MD Laboratory Test 03/29/17 20:10 03/29/17 20:48 03/29/17 21:20 03/30/17 04:27 White Blood Count 11.9 TH/MM3 14.3 TH/MM3 Red Blood Count 5.01 MIL/MM3 3.62 MIL/MM3 Hemoglobin 16.1 GM/DL 11.6 GM/DL Hematocrit 46.9 % 33.5 % Mean Corpuscular Volume 93.6 FL 92.4 FL Mean Corpuscular Hemoglobin 32.2 PG 31.9 PG Mean Corpuscular Hemoglobin Concent 34.4 % 34.5 % Red Cell Distribution Width 13.4 % 13.2 % Platelet Count 171 TH/MM3 40 TH/MM3 Mean Platelet Volume 12.5 FL 9.1 FL Neutrophils (%) (Auto) 58.0 % 86.2 % Lymphocytes (%) (Auto) 35.8 % 6.9 % Monocytes (%) (Auto) 3.3 % 6.6 % Eosinophils (%) (Auto) 1.9 % 0.0 % Basophils (%) (Auto) 1.0 % 0.3 % Neutrophils # (Auto) 6.9 TH/MM3 12.4 TH/MM3 Lymphocytes # (Auto) 4.3 TH/MM3 1.0 TH/MM3 Monocytes # (Auto) 0.4 TH/MM3 0.9 TH/MM3 Eosinophils # (Auto) 0.2 TH/MM3 0.0 TH/MM3 Basophils # (Auto) 0.1 TH/MM3 0.0 TH/MM3 CBC Comment AUTO DIFF AUTO DIFF Differential Total Cells Counted 100 100 Neutrophils % (Manual) 54 % 82 % Band Neutrophils % 2 % 8 % Lymphocytes % 34 % 5 % Monocytes % 8 % 5 % Eosinophils % 2 % Neutrophils # (Manual) 6.7 TH/MM3 12.9 TH/MM3 Differential Comment FINAL DIFF MANUAL FINAL DIFF MANUAL Atypical Lymphocytes % Platelet Estimate NORMAL LOW Platelet Morphology Comment ENLARGED NORMAL Ovalocytes 1+ Blood Urea Nitrogen 15 MG/DL 19 MG/DL Creatinine 0.72 MG/DL 0.89 MG/DL Random Glucose 100 MG/DL 112 MG/DL Total Protein 7.6 GM/DL 5.2 GM/DL Albumin 2.9 GM/DL 2.0 GM/DL Calcium Level 8.6 MG/DL 7.8 MG/DL Alkaline Phosphatase 275 U/L 198 U/L Aspartate Amino Transf (AST/SGOT) 105 U/L 3044 U/L Alanine Aminotransferase (ALT/SGPT) 89 U/L 1207 U/L Total Bilirubin 0.5 MG/DL 4.5 MG/DL Sodium Level 138 MEQ/L 138 MEQ/L Potassium Level 3.6 MEQ/L 3.4 MEQ/L Chloride Level 106 MEQ/L 104 MEQ/L Carbon Dioxide Level 19.8 MEQ/L 21.4 MEQ/L Anion Gap 12 MEQ/L 13 MEQ/L Estimat Glomerular Filtration Rate 88 ML/MIN 69 ML/MIN Lipase 114 U/L 110 U/L Uric Acid 6.7 MG/DL Ammonia 28 MCMOL/L Urine Color YELLOW Urine Turbidity CLEAR Urine pH 6.0 Urine Specific [place] 1.022 Urine Protein 100 mg/dL Urine Glucose (UA) NEG mg/dL Urine Ketones NEG mg/dL Urine Occult Blood SMALL Urine Nitrite NEG Urine Bilirubin NEG Urine Urobilinogen LESS THAN 2.0 MG/DL Urine Leukocyte Esterase NEG Urine RBC 4 /hpf Urine WBC 1 /hpf Urine Squamous Epithelial Cells <1 /hpf Microscopic Urinalysis Comment CATH-CULT NOT IND Test 03/30/17 08:00 03/30/17 11:55 White Blood Count 15.2 TH/MM3 15.8 TH/MM3 Red Blood Count 3.45 MIL/MM3 3.49 MIL/MM3 Hemoglobin 11.3 GM/DL 11.5 GM/DL Hematocrit 31.9 % 32.0 % Mean Corpuscular Volume 92.5 FL 91.8 FL Mean Corpuscular Hemoglobin 32.9 PG 32.9 PG Mean Corpuscular Hemoglobin Concent 35.6 % 35.8 % Red Cell Distribution Width 13.1 % 13.2 % Platelet Count 38 TH/MM3 47 TH/MM3 Mean Platelet Volume 9.1 FL 10.5 FL Neutrophils (%) (Auto) 89.7 % Lymphocytes (%) (Auto) 5.9 % Monocytes (%) (Auto) 4.3 % Eosinophils (%) (Auto) 0.0 % Basophils (%) (Auto) 0.1 % Neutrophils # (Auto) 13.6 TH/MM3 Lymphocytes # (Auto) 0.9 TH/MM3 Monocytes # (Auto) 0.7 TH/MM3 Eosinophils # (Auto) 0.0 TH/MM3 Basophils # (Auto) 0.0 TH/MM3 CBC Comment AUTO DIFF Differential Total Cells Counted 100 Neutrophils % (Manual) 87 % Band Neutrophils % 12 % Lymphocytes % 1 % Neutrophils # (Manual) 15.0 TH/MM3 Differential Comment FINAL DIFF MANUAL Platelet Estimate LOW Platelet Morphology Comment NORMAL Red Cell Morphology Comment NORMAL Magnesium Level 13.2 MG/DL Total Bilirubin 4.7 MG/DL Direct Bilirubin 2.7 MG/DL Indirect Bilirubin 2.0 MG/DL Aspartate Amino Transf (AST/SGOT) 2425 U/L Alanine Aminotransferase (ALT/SGPT) 1084 U/L Alkaline Phosphatase 187 U/L Total Protein 4.9 GM/DL Albumin 2.0 GM/DL Physical Examination HEENT: Normocephalic; atraumatic; + jaundice. CHEST: Resp even/unlabored. CARDIAC: RRR. ABDOMEN: Soft, nondistended, nontender; no hepatosplenomegaly; bowel sounds are present in all four quadrants. EXTREMITIES: No clubbing, cyanosis, or edema. SKIN: Normal; no rash; + jaundice. DRAFTER APPRENTICE: No focal deficits; alert and oriented times three. (Joyce Hernandez [facility]) Assessment and Plan Plan ASSESSMENT: - Elevated LFTs, likely secondary to HELLP syndrome. She denies any history of known liver disease or hepatitis in herself or family members. She does not drink ETOH. She denies any new medications or herbal supplements. Liver US (03/30/17)----> Gallstones and gallbladder sludge. Moderate wall thickening. Free fluid noted as outlined above, including pericholecystic fluid. T. Bili 4.7, AST 2425, ALT 1084, Alk Phosph 187. Plt 38,000. Rpt. labs pending. S/P (03/29/17). Clear liquids/Ice chips. - Thrombocytopenia. Plt 38,000, repeat labs pending. She notes small amount of vaginal bleeding- but no significant bleeding. - Nausea. Order Zofran prn. - Abnormal imaging of GB with cholelithiasis/sludge, moderate wall thickening, pericholecystic fluid. Unclear how much is related to above process and if she has underlying gb disease on top of that. Will monitor. - Severe pre-eclampsia, s/p emergent . PLAN: - Clear liquids/Ice Chips - Await repeat labs - PT/INR, PTT today - CBC, CMP, PT/INR in am - Zofran prn n/v. - Supportive care - Further recommendations to follow after patient has been seen and examined by Dr. Payne (Joyce Hernandez) Physician Comments Patient was seen and examined, agree with the above plan, most likely help syndrome also possible shock liver less likely with a low platelet on April labs and I will patient is doing, (Mary Payne MD) Joyce Hernandez Mar 30, 2017 13:00 Mary Payne MD Mar 31, 2017 13:17
[2017-03-30 13:20] LABS: APTT (PATIENT) 27.1 SEC (24.3-30.1); INTERNATIONAL NORMALIZED RATIO 0.9 RATIO; PROTHROMBIN TIME - PATIENT 10.2 SEC (9.8-11.6)
[2017-03-30] MEDS: MAGNESIUM SULFATE 40 GM PREMIX 1,000 ML IV SCH (13:35)
[2017-03-30] MEDS ORDERED: SODIUM CHLORIDE 0.9% FLUSH 5 ML FLUSH IV PRN (13:45)
[2017-03-30] MEDS ORDERED: ONDANSETRON HCL 4 MG/2 ML VIAL IV PUSH PRN (14:00)
[2017-03-30] MEDS ORDERED: DIPHTH/TETANUS/ACEL PERTUSSIS (BOOSTER) 0.5 ML VIAL/PFS IM ONE (16:00)
[2017-03-30] MEDS ORDERED: MEASLES, MUMPS, RUBELLA VACCINE 0.5 ML VIAL SQ ONE (16:00)
[2017-03-30] MEDS ORDERED: SODIUM CHLORIDE 0.9% FLUSH 5 ML FLUSH IV SCH (21:00)
[2017-03-31] VITALS (22 sets, daily range): BP systolic 116–151; BP diastolic 72–89; PULSE 72–90; RESP 17–20; TEMP 98–98.9; O2SAT 97–100
[2017-03-31 05:58] LABS: AUTOMATED NEUTROPHIL # 9.4 TH/MM3 (1.8-7.7); BASOPHIL % 0.3 % (0.0-2.0); EOSINOPHIL # 0.2 TH/MM3 (0-0.4); EOSINOPHIL % 2.1 % (0.0-4.0); LYMPH % 11.8 % (9.0-44.0); LYMPHOCYTE # 1.4 TH/MM3 (1.0-4.8); MEAN CORPUSCULAR HEMOGLOBIN 32.2 PG (27.0-34.0); MONO % 4.8 % (0.0-8.0); PLATELET COUNT 54 TH/MM3 (150-450); RED BLOOD COUNT 2.83 MIL/MM3 (4.00-5.30); RED CELL DISTRIBUTION WIDTH 13.4 % (11.6-17.2); WHITE BLOOD COUNT 11.7 TH/MM3 (4.0-11.0)
[2017-03-31 06:07] LABS: APTT (PATIENT) 28.9 SEC (24.3-30.1); INTERNATIONAL NORMALIZED RATIO 0.9 RATIO; PROTHROMBIN TIME - PATIENT 9.5 SEC (9.8-11.6)
[2017-03-31 06:09] LABS: HEMO FLAGS AUTO DIFF
[2017-03-31 06:43] LABS: BICARBONATE 22.5 MEQ/L (21.0-32.0); CALCIUM-PROTEIN CORRECTED 8.4 MG/DL (8.5-10.1); POTASSIUM 3.7 MEQ/L (3.5-5.1); TOTAL BILIRUBIN ADULT 1.6 MG/DL (0.2-1.0)
[2017-03-31] MEDS: SODIUM CHLORIDE 0.9% FLUSH 10 ML FLUSH IV FLUSH SCH ×2 (07:51→21:00)
[2017-03-31 08:55] LABS: PLATELET ESTIMATE SMEAR LOW (NORMAL); PLATELET MORPHOLOGY NORMAL (NORMAL); SCAN/DIFF AUTO DIFF CONFIRMED
--- NOTE | 2017-03-31 09:32 | HHI.OB ---
Subjective Post Day: 2 Remarks Postoperative day number 2. AFVSS overnight. Pain moderate, epigastric. Incision not draining. Appetite good. No nausea or vomiting. No flatus. No bowel movement. Minimal ambulation. Drinking fluids. No nausea/vomiting. Objective Vitals/I&O Vital Signs Date Time Temp Pulse Resp B/P (MAP) Pulse Ox O2 Delivery O2 Flow Rate FiO2 03/29/17 20:23 99 Room Air 03/29/17 20:00 24 03/29/17 19:57 98.4 104 Objective Remarks GENERAL: Patient resting in bed, in no acute distress CARDIOVASCULAR: Tachycardic. RESPIRATORY: No accessory muscle use. ABDOMEN/GI: Abdomen distended, tender to palpation epigastric region Fundus: Firm, non-tender at umbilicus. Incision site clean/ dry/ and intact EXTREMITIES: No cyanosis or edema. Medications and IVs Current Medications Medications (Trade) Dose Ordered Sig/Adama Route Start Time Stop Time Status Last Admin (Trandate Inj) 20 mg NOW PRN IV PUSH 03/29/17 20:45 03/31/17 20:44 (Calcium Gluconate Inj) 1 gm UNSCH PRN IV PUSH 03/29/17 20:45 (Bicitra Liq) 30 ml SENIOR REVENUE ACCOUNTANT PO 03/29/17 21:00 04/02/17 20:59 03/29/17 22:06 Cefazolin Sodium/ Dextrose 50 ml @ 100 mls/hr SENIOR REVENUE ACCOUNTANT IV 03/29/17 21:45 04/02/17 21:44 03/29/17 22:06 (NS Flush) 2 ml BID IV FLUSH 03/30/17 09:00 03/31/17 07:51 (NS Flush) 2 ml UNSCH PRN IV FLUSH 03/29/17 23:15 (Mylicon Chew) 80 mg QID PRN PO 03/29/17 23:15 03/31/17 07:51 (Motrin) 600 mg Q6H PRN PO 03/29/17 23:15 (Percocet 5-325 Mg) 1 tab Q4H PRN PO 03/29/17 23:15 (Percocet 5-325 Mg) 2 tab Q4H PRN PO 03/29/17 23:15 (Zofran Inj) 4 mg Q6HR PRN IV PUSH 03/30/17 14:00 Magnesium Sulfate 1,000 ml @ 12.5 mls/hr Q24H IV 03/30/17 13:35 03/30/17 13:35 Assessment/Plan Problem List: (1) delivery delivered ICD Codes: O82 - Encounter for delivery without indication Status: Acute (2) HELLP syndrome ICD Codes: O14.20 - HELLP syndrome (HELLP), unspecified trimester (3) Severe pre-eclampsia ICD Codes: O14.10 - Severe pre-eclampsia, unspecified trimester Status: Resolved (4) 38 weeks gestation of ICD Codes: Z3A.38 - 38 weeks gestation of Status: Resolved (5) Advanced maternal age in multigravida ICD Codes: O09.529 - Supervision of elderly multigravida, unspecified trimester Status: Acute (6) NANCY (acute kidney injury) ICD Codes: N17.9 - Acute kidney failure, unspecified Assessment and Plan 42yo G8 now P8 delivered via POD #2 due to severe preeclampsia and HELLP syndrome 1. Platelets 54K,trending upward. Will continue to folliow. 2. Severe preeclampsia - received 24 hrs Mg, no seizure activity 3. HELLP: Liver enzymes trending downward. Abdominal U/S raises suspicion for chronic cholelithiasis, likely cause of epigastric pain. Will continue to follow CMP labs and will expect continued improvement. Plts levels improving. Per GI consult, continue supportive care. Advance diet as tolerated. 4. Advanced maternal age 5. NANCY: BUN/Cr of 30/1.74. Baseline appears to be 15/.72. GFR of 32 (88 on admission). Con't to hydrate and provide supportive care. Con't labs. SWDW Dr. Joyce and Dr. Alonzo Dugan,Beryl Hook MD R1 Mar 31, 2017 09:32
[2017-03-31] MEDS ORDERED: AMMONIA AROMATIC INHALANT 0.33 ML ONE (10:23)
--- NOTE | 2017-03-31 14:38 | HHI.GIFU ---
Subjective Remarks Resting in bed. Mild epigastric discomfort. No n/v. Tolerating diet. (Joyce Hernandez) Objective Laboratory Laboratory Tests Test 03/30/17 17:45 03/31/17 04:42 Magnesium Level 8.6 White Blood Count 11.7 Red Blood Count 2.83 Hemoglobin 9.1 Hematocrit 26.0 Mean Corpuscular Volume 92.0 Mean Corpuscular Hemoglobin 32.2 Mean Corpuscular Hemoglobin Concent 35.0 Red Cell Distribution Width 13.4 Platelet Count 54 Mean Platelet Volume 10.9 Neutrophils (%) (Auto) 81.0 Lymphocytes (%) (Auto) 11.8 Monocytes (%) (Auto) 4.8 Eosinophils (%) (Auto) 2.1 Basophils (%) (Auto) 0.3 Neutrophils # (Auto) 9.4 Lymphocytes # (Auto) 1.4 Monocytes # (Auto) 0.6 Eosinophils # (Auto) 0.2 Basophils # (Auto) 0.0 CBC Comment AUTO DIFF Differential Comment AUTO DIFF CONFIRMED Platelet Estimate LOW Platelet Morphology Comment NORMAL Prothrombin Time 9.5 Prothromb Time International Ratio 0.9 Activated Partial Thromboplast Time 28.9 Blood Urea Nitrogen 30 Creatinine 1.74 Random Glucose 73 Total Protein 4.8 Albumin 1.7 Calcium Level 7.1 Alkaline Phosphatase 159 Aspartate Amino Transf (AST/SGOT) 501 Alanine Aminotransferase (ALT/SGPT) 534 Total Bilirubin 1.6 Sodium Level 131 Potassium Level 3.7 Chloride Level 98 Carbon Dioxide Level 22.5 Anion Gap 11 Estimat Glomerular Filtration Rate 32 Protein Corrected Calcium 8.4 Imaging Last Impressions Liver Ultrasound 03/30/17 0000 Signed Impressions: Service Date/Time: Thursday, March 30, 2017 09:14 - CONCLUSION: Gallstones and gallbladder sludge. Moderate wall thickening. Free fluid noted as outlined above including pericholecystic fluid. Harshal Owen MD Physical Exam HEENT: Normocephalic; atraumatic CHEST: CTA CARDIAC: RRR ABDOMEN: Soft, nondistended, mild epigastric tenderness; no hepatosplenomegaly ; bowel sounds are present in all four quadrants. EXTREMITIES: No clubbing, cyanosis, or edema. DRAIN LAYER: No focal deficits; alert and oriented times three. (Joyce Hernandez) Assessment and Plan Plan ASSESSMENT: - Elevated LFTs, likely secondary to HELLP syndrome. She denies any history of known liver disease or hepatitis in herself or family members. She does not drink ETOH. She denies any new medications or herbal supplements. Liver US (03/30/17)----> Gallstones and gallbladder sludge. Moderate wall thickening. Free fluid noted as outlined above, including pericholecystic fluid. T. Bili 1.6, AST 501, ALT 534, Alk Phosph 159. Plt 38,000. S/P (03/29/17). LFTs improving. Clinically doing well. - Thrombocytopenia. Plt 54,000. She notes small amount of vaginal bleeding- but no significant bleeding. - Nausea. Order Zofran prn. - Abnormal imaging of GB with cholelithiasis/sludge, moderate wall thickening, pericholecystic fluid. Unclear how much is related to above process and if she has underlying gb disease on top of that. Will monitor. - Severe pre-eclampsia, s/p emergent . PLAN: - JORI - Rpt. LFT, PT/INR, CBC in am - Zofran prn n/v - Supportive care - Supportive care - Further recommendations to follow based on results of above - Pt seen and examined by Dr. Payne and myself and this note is written on his behalf (Joyce Hernandez) Plan Agree with the above note, most likely help syndrome, liver function tests much improved since yesterday and also platelet, continue current care (Mary Payne MD) Joyce Hernandez Mar 31, 2017 14:38 Mary Payne MD Mar 31, 2017 15:43
[2017-03-31] MEDS: IBUPROFEN 600 MG TAB PO PRN (18:54)
[2017-04-01 02:18] VITALS: BP 118/76; PULSE 88; RESP 18; TEMP 98.8
[2017-04-01] MEDS: IBUPROFEN 600 MG TAB PO PRN (02:18)
[2017-04-01 06:00] LABS: HEMATOCRIT 23.5 % (35.0-46.0); MEAN CELL VOLUME 92.8 FL (80.0-100.0); MEAN CORPUSCULAR HGB CONC 35.6 % (32.0-36.0); PLATELET COUNT 82 TH/MM3 (150-450); RED BLOOD COUNT 2.54 MIL/MM3 (4.00-5.30); RED CELL DISTRIBUTION WIDTH 13.3 % (11.6-17.2); WHITE BLOOD COUNT 9.3 TH/MM3 (4.0-11.0)
[2017-04-01 06:06] LABS: REVIEW FLAG FINAL
[2017-04-01 06:09] LABS: APTT (PATIENT) 25.2 SEC (24.3-30.1); INTERNATIONAL NORMALIZED RATIO 0.9 RATIO; PROTHROMBIN TIME - PATIENT 9.4 SEC (9.8-11.6)
[2017-04-01 06:31] LABS: BICARBONATE 23.2 MEQ/L (21.0-32.0); CALCIUM-PROTEIN CORRECTED 8.3 MG/DL (8.5-10.1); POTASSIUM 3.8 MEQ/L (3.5-5.1); TOTAL BILIRUBIN ADULT 0.9 MG/DL (0.2-1.0)
[2017-04-01 08:40] VITALS: BP 139/78; PULSE 83; RESP 20; TEMP 98.7; O2SAT 99
[2017-04-01] MEDS: SODIUM CHLORIDE 0.9% FLUSH 10 ML FLUSH IV FLUSH SCH (09:00)
--- NOTE | 2017-04-01 09:27 | HHI.OB ---
Subjective Post Day: 3 Remarks day # 3. AFVSS overnight. Pain minimal. Denies dysuria. No breast tenderness. Drinking fluids, ambulating to the bathroom. No nausea or vomiting. States she feels dizzy when she initially gets up from bed. No falls. No other complaints. Objective Objective Remarks GENERAL: Patient resting in bed, in no acute distress CARDIOVASCULAR: RRR w/o murmer. RESPIRATORY: No accessory muscle use. ABDOMEN/GI: Abdomen distended. Incision site clean/ dry/ and intact. EXTREMITIES: No cyanosis or edema. Medications and IVs Current Medications Medications (Trade) Dose Ordered Sig/Adama Route Start Time Stop Time Status Last Admin (Calcium Gluconate Inj) 1 gm UNSCH PRN IV PUSH 03/29/17 20:45 (Bicitra Liq) 30 ml SUPERVISING PRODUCER PO 03/29/17 21:00 04/02/17 20:59 03/29/17 22:06 Cefazolin Sodium/ Dextrose 50 ml @ 100 mls/hr SUPERVISING PRODUCER IV 03/29/17 21:45 04/02/17 21:44 03/29/17 22:06 (NS Flush) 2 ml BID IV FLUSH 03/30/17 09:00 03/31/17 07:51 (NS Flush) 2 ml UNSCH PRN IV FLUSH 03/29/17 23:15 (Mylicon Chew) 80 mg QID PRN PO 03/29/17 23:15 03/31/17 07:51 (Motrin) 600 mg Q6H PRN PO 03/29/17 23:15 04/01/17 02:18 (Percocet 5-325 Mg) 1 tab Q4H PRN PO 03/29/17 23:15 03/31/17 18:54 (Percocet 5-325 Mg) 2 tab Q4H PRN PO 03/29/17 23:15 04/01/17 02:18 (Zofran Inj) 4 mg Q6HR PRN IV PUSH 03/30/17 14:00 Magnesium Sulfate 1,000 ml @ 12.5 mls/hr Q24H IV 03/30/17 13:35 03/30/17 13:35 Assessment/Plan Problem List: (1) delivery delivered ICD Codes: O82 - Encounter for delivery without indication Status: Resolved (2) HELLP syndrome ICD Codes: O14.20 - HELLP syndrome (HELLP), unspecified trimester Status: Acute (3) Severe pre-eclampsia ICD Codes: O14.10 - Severe pre-eclampsia, unspecified trimester Status: Resolved (4) 38 weeks gestation of ICD Codes: Z3A.38 - 38 weeks gestation of Status: Resolved (5) Advanced maternal age in multigravida ICD Codes: O09.529 - Supervision of elderly multigravida, unspecified trimester Status: Acute (6) NANCY (acute kidney injury) ICD Codes: N17.9 - Acute kidney failure, unspecified Status: Acute Assessment and Plan 42yo G8 now P8 delivered via POD #2 due to severe preeclampsia and HELLP syndrome 1. HELLP: Liver enzymes trending downward. Abdominal U/S raises suspicion for chronic cholelithiasis, likely cause of epigastric pain. Will continue to follow CMP labs and will expect continued improvement. Plts levels improving. Per GI consult, continue supportive care. Regular diet 2. ARF: BUN/Cr elevated from yesterday (43/2.8) from (30/1.74). Baseline appears to be 15/.72. GFR decreased by more than 75% (Last GFR from today's lab is 19;88 on admission). D/C Ibuprofen, avoid all NSAIDs or JOELLEN-Is. Con't to encourage oral rehydration. Monitor daily CMPs. Will consult Nephro. LAUREW Dr. Joyce and Dr. Alonzo Dugan,Beryl Hook MD R1 Apr 01, 2017 09:27
--- NOTE | 2017-04-01 09:34 | HHI.PR ---
Subjective Remarks OB Attending Assumed care for patient who is now POD#3 from primary section for HELLP; of note BUN/Cr have increased since presentation (Cr 0.72 to 2.77, BUN 15 to 43). Have d/c NSAIDs and will obtain nephrology consult to further evaluate NANCY. Objective Result Diagram: 04/01/17 0522 04/01/17 0522 Ann Christianson MD Apr 01, 2017 09:34
[2017-04-01 13:30] VITALS: BP 140/84; PULSE 71; RESP 20; TEMP 98.6
--- NOTE | 2017-04-01 14:40 | HHI.GIFU ---
Subjective Remarks Resting in bed. No distress. Tolerating diet. No further abdominal pain, nausea. (Joyce Hernandez) Objective Vitals I&O I/O 03/31/17 03/31/17 03/31/17 04/01/17 04/01/17 04/01/17 07:00 15:00 23:00 07:00 15:00 23:00 Output Total 300 ml Balance -300 ml Output Urine Total 300 ml Laboratory Laboratory Tests Test 04/01/17 05:22 White Blood Count 9.3 Red Blood Count 2.54 Hemoglobin 8.4 Hematocrit 23.5 Mean Corpuscular Volume 92.8 Mean Corpuscular Hemoglobin 33.0 Mean Corpuscular Hemoglobin Concent 35.6 Red Cell Distribution Width 13.3 Platelet Count 82 Mean Platelet Volume 10.6 Prothrombin Time 9.4 Prothromb Time International Ratio 0.9 Activated Partial Thromboplast Time 25.2 Blood Urea Nitrogen 43 Creatinine 2.77 Random Glucose 77 Total Protein 5.0 Albumin 1.8 Calcium Level 7.2 Alkaline Phosphatase 149 Aspartate Amino Transf (AST/SGOT) 144 Alanine Aminotransferase (ALT/SGPT) 298 Total Bilirubin 0.9 Sodium Level 135 Potassium Level 3.8 Chloride Level 102 Carbon Dioxide Level 23.2 Anion Gap 10 Estimat Glomerular Filtration Rate 19 Protein Corrected Calcium 8.3 Imaging Last Impressions Liver Ultrasound 03/30/17 0000 Signed Impressions: Service Date/Time: Thursday, March 30, 2017 09:14 - CONCLUSION: Gallstones and gallbladder sludge. Moderate wall thickening. Free fluid noted as outlined above including pericholecystic fluid. Harshal Owen MD Physical Exam HEENT: Normocephalic; atraumatic CHEST: CTA CARDIAC: RRR ABDOMEN: Soft, nondistended, nontender; no hepatosplenomegaly; bowel sounds are present in all four quadrants. EXTREMITIES: No clubbing, cyanosis, or edema. BUSINESS DEVELOPMENT PROFESSIONAL: No focal deficits; alert and oriented times three. (HernandezJoyce) Assessment and Plan Plan ASSESSMENT: - Elevated LFTs, likely secondary to HELLP syndrome. She denies any history of known liver disease or hepatitis in herself or family members. She does not drink ETOH. She denies any new medications or herbal supplements. Liver US (03/30/17)----> Gallstones and gallbladder sludge. Moderate wall thickening. Free fluid noted as outlined above, including pericholecystic fluid. LFTs much improved, continue to trend down. T. Bili 0.9, AST 144, ALT 298, Alk Phosph 149. Platelets improving. Plt 82. Clinically, doing well, abdominal pain has improved. - Thrombocytopenia. Plt 82,000. She notes small amount of vaginal bleeding- but no significant bleeding. - Nausea. Resolved, Zofran prn. - Abnormal imaging of GB with cholelithiasis/sludge, moderate wall thickening, pericholecystic fluid. Unclear how much is related to above process and if she has underlying gb disease on top of that. Will monitor. - Severe pre-eclampsia, s/p emergent . PLAN: - JORI - Clinically doing well. LFTs, Platelets improving - GI will sign off, please reconsult as needed - Pt seen and examined by Dr. Payne and myself and this note is written on his behalf (Joyce Hernandez) Plan Agree with above plan, we will sign off at this point (Mary Payne MD) Joyce Hernandez Apr 01, 2017 14:40 Mary Payne MD Apr 02, 2017 18:03
--- NOTE | 2017-04-01 16:41 | PD.CONS ---
HPI Service Nephrology Consult Requested By Reason for Consult Acute renal failure Primary Care Physician Unknown History of Present Illness This is a 42 y/o female patient who is [place] speaking. She came to the ER for abdominal pain, was nearly full term with 8th . She was diagnosed with HELPP syndrome, and 03/30 had urgent cesarian. Her blood pressure was elevated over 200s on arrival, which has improved somewhat. Her creatinine on arrival was 0.72, which has increased to 2.77 over the past 4 days. She is making urine she reports. In addition she is thrombocytopenic that is also improving. She was evaluated by GI for elevated LFTs. We were consulted for management of her renal failure. (Catarina Pritchard) Review of Systems ROS Limitations: Language Barrier Constitutional: COMPLAINS OF: Fatigue Gastrointestinal: COMPLAINS OF: Abdominal pain Genitourinary: COMPLAINS OF: Abnormal vaginal bleeding (Catarina Pritchard ) Past Family Social History Allergies: Coded Allergies: No Known Allergies (Unverified , 03/29/17) Past Medical History No hx Past Surgical History Cesarian Reported Medications Denies Active Ordered Medications Current Medications Medications (Trade) Dose Ordered Sig/Adama Route Start Time Stop Time Status Last Admin (Calcium Gluconate Inj) 1 gm UNSCH PRN IV PUSH 03/29/17 20:45 (Bicitra Liq) 30 ml MARBLE SETTER PO 03/29/17 21:00 04/02/17 20:59 03/29/17 22:06 Cefazolin Sodium/ Dextrose 50 ml @ 100 mls/hr MARBLE SETTER IV 03/29/17 21:45 04/02/17 21:44 03/29/17 22:06 (NS Flush) 2 ml BID IV FLUSH 03/30/17 09:00 03/31/17 07:51 (NS Flush) 2 ml UNSCH PRN IV FLUSH 03/29/17 23:15 (Mylicon Chew) 80 mg QID PRN PO 03/29/17 23:15 03/31/17 07:51 (Zofran Inj) 4 mg Q6HR PRN IV PUSH 03/30/17 14:00 Magnesium Sulfate 1,000 ml @ 12.5 mls/hr Q24H IV 03/30/17 13:35 03/30/17 13:35 (Roxicodone) 5 mg Q4H PRN PO 04/01/17 12:00 04/01/17 13:18 (Roxicodone) 10 mg Q4H PRN PO 04/01/17 12:00 Family History Denies history Social History North [place] speaking not non smoking no ETOH (Catarina Pritchard) Physical Exam Physical Exam Middle aged [place] speaking female awake, alert, feeding baby not in distress lungs clear, no wheezing or rales S1/S2, RRR no murmurs Abdomen soft, non tender; lower abdominal incision trace edema to lower extremities Laboratory Laboratory Tests Test 04/01/17 05:22 White Blood Count 9.3 Red Blood Count 2.54 Hemoglobin 8.4 Hematocrit 23.5 Mean Corpuscular Volume 92.8 Mean Corpuscular Hemoglobin 33.0 Mean Corpuscular Hemoglobin Concent 35.6 Red Cell Distribution Width 13.3 Platelet Count 82 Mean Platelet Volume 10.6 Prothrombin Time 9.4 Prothromb Time International Ratio 0.9 Activated Partial Thromboplast Time 25.2 Blood Urea Nitrogen 43 Creatinine 2.77 Random Glucose 77 Total Protein 5.0 Albumin 1.8 Calcium Level 7.2 Alkaline Phosphatase 149 Aspartate Amino Transf (AST/SGOT) 144 Alanine Aminotransferase (ALT/SGPT) 298 Total Bilirubin 0.9 Sodium Level 135 Potassium Level 3.8 Chloride Level 102 Carbon Dioxide Level 23.2 Anion Gap 10 Estimat Glomerular Filtration Rate 19 Protein Corrected Calcium 8.3 (Catarina Pritchard) Result Diagram: 04/01/17 0522 04/01/17 0522 Imaging Last Impressions Liver Ultrasound 03/30/17 0000 Signed Impressions: Service Date/Time: Thursday, March 30, 2017 09:14 - CONCLUSION: Gallstones and gallbladder sludge. Moderate wall thickening. Free fluid noted as outlined above including pericholecystic fluid. Harshal Owen MD (Catarina Pritchard) Assessment and Plan Problem List: (1) NANCY (acute kidney injury) ICD Codes: N17.9 - Acute kidney failure, unspecified Status: Acute Plan: May be due to HUS, her renal function is worse today she reports she is making urine, attempt to quantify obtain renal US repeat UA start IVF stop NSAIDs (2) HELLP syndrome ICD Codes: O14.20 - HELLP syndrome (HELLP), unspecified trimester Status: Acute Plan: s/p cesarian delivery platelet count is improving liver enzymes are improving GI has signed off. (Catarina Pritchard) Assessment and Plan patient was seen and examined. NANCY likely due to preeclampsia/HELLP associated condition. Unlikely to have thrombotic microangiopathy(HUS). Cautious IVF for 12 hours. Monitor renal function. Avoid nephrotoxic agents: she did receive Ibuprofen earlier: better to avoid all NSAIDS. (Mode Rivera MD) Catarina Pritchard Apr 01, 2017 16:41 Mode Rivera MD Apr 01, 2017 17:56
[2017-04-01] MEDS: SODIUM CHLOR 0.9% 1000 ML INJ 1,000 ML IV SCH (17:22)
[2017-04-01 19:04] VITALS: BP 161/84; PULSE 76; RESP 16; TEMP 98
[2017-04-01 21:00] VITALS: BP 137/91; PULSE 81
[2017-04-02] VITALS (8 sets, daily range): BP systolic 135–163; BP diastolic 85–97; PULSE 69–82; RESP 16–18; TEMP 97.7–99.9
[2017-04-02 01:36] LABS: BLOOD, URINE LARGE (NEG); COMMENT (UR) CULT NOT INDICATED; CULTURE IF INDICATED CULT NOT INDICATED; GLUCOSE,URINE NEG (NEG); KETONE, URINE NEG (NEG); NITRITE,URINE NEG (NEG); SQUAMOUS EPITHELIAL CELL URINE 1 /hpf (0-5); URINE COLOR LIGHT-YELLOW (YELLW/STRAW)
[2017-04-02 05:51] LABS: AUTOMATED NEUTROPHIL # 6.7 TH/MM3 (1.8-7.7); BASOPHIL % 0.3 % (0.0-2.0); EOSINOPHIL # 0.4 TH/MM3 (0-0.4); LYMPH % 15.6 % (9.0-44.0); LYMPHOCYTE # 1.4 TH/MM3 (1.0-4.8); MEAN CELL VOLUME 93.7 FL (80.0-100.0); MEAN CORPUSCULAR HEMOGLOBIN 32.3 PG (27.0-34.0); MEAN CORPUSCULAR HGB CONC 34.4 % (32.0-36.0); MONO % 4.7 % (0.0-8.0); NEUT % 75.4 % (16.0-70.0); PLATELET COUNT 99 TH/MM3 (150-450); RED BLOOD COUNT 2.46 MIL/MM3 (4.00-5.30); RED CELL DISTRIBUTION WIDTH 13.6 % (11.6-17.2); WHITE BLOOD COUNT 8.9 TH/MM3 (4.0-11.0)
[2017-04-02 06:17] LABS: HEMO FLAGS AUTO DIFF
[2017-04-02 06:31] LABS: BICARBONATE 22.8 MEQ/L (21.0-32.0); CALCIUM-PROTEIN CORRECTED 8.3 MG/DL (8.5-10.1); POTASSIUM 4.4 MEQ/L (3.5-5.1); TOTAL BILIRUBIN ADULT 0.8 MG/DL (0.2-1.0)
[2017-04-02] MEDS ORDERED: INFLUENZA VIRUS VACCINE (QUADRIVALENT) 0.5 ML SYR IM ONE (09:00)
[2017-04-02 11:00] LABS: PLATELET ESTIMATE SMEAR LOW (NORMAL); PLATELET MORPHOLOGY NORMAL (NORMAL); SCAN/DIFF AUTO DIFF CONFIRMED
--- NOTE | 2017-04-02 11:14 | RADRPT ---
EXAM DATE/TIME: 04/02/2017 09:48 [facility] COMPARISON: No previous studies available for comparison. INDICATIONS : Flank pain. Increased BUN/creatinine. MEDICAL HISTORY : Dyspnea. Abdominal pain. Abnormal uterine bleeding. HELLP syndrome. SURGICAL HISTORY : section. ENCOUNTER: Initial ACUITY: 3 days PAIN SCORE: 5/10 LOCATION: Bilateral flank MEASUREMENTS: RIGHT KIDNEY: 13.4 x 5.1 x 5.3 cm LEFT KIDNEY: 12.8 x 5.2 x 6.2 cm FINDINGS: RIGHT KIDNEY: Slightly enlarged with diffusely increased cortical echogenicity. No significant focal mass, hydronep hrosis or stone. LEFT KIDNEY: Slightly enlarged with diffusely increased cortical echogenicity. No significant focal mass, hydronep hrosis or stone. BLADDER: Within normal limits given the degree of distension. Incidental note is made of small stones/sludge within the gallbladder. CONCLUSION: 1. Mildly enlarged echogenic kidneys without evidence for obstructive uropathy. Differential consider ations include diabetic nephropathy, acute glomerulonephritis, HIV nephropathy and less likely leukem ia/lymphomatous infiltration. Otf Cagle MD on April 02, 2017 at 10:46 Board Certified Radiologist. This report was verified electronically.
--- NOTE | 2017-04-02 13:12 | HHI.OB ---
Subjective Post Day: 4 Remarks day # 4. AFVSS overnight. Pain minimal. Drinking fluids, ambulating to the bathroom. No nausea or vomiting. No other complaints. Urine output of at least 300 ml since this morning. Objective Vitals/I&O Vital Signs Date Time Temp Pulse Resp B/P (MAP) Pulse Ox O2 Delivery O2 Flow Rate FiO2 04/01/17 21:00 81 137/91 (106) 04/01/17 19:04 98.0 76 16 161/84 (109) 04/01/17 13:30 98.6 71 20 140/84 (102) Intake & Output 04/02/17 04/02/17 07:00 19:00 Output Total 600 ml Balance -600 ml Output Urine Total 600 ml Objective Remarks GENERAL: Patient resting in bed, in no acute distress CARDIOVASCULAR: RRR w/o murmer. RESPIRATORY: No accessory muscle use. ABDOMEN/GI: Abdomen distended. Incision site clean/ dry/ and intact. EXTREMITIES: No cyanosis or edema. Medications and IVs Current Medications Medications (Trade) Dose Ordered Sig/Adama Route Start Time Stop Time Status Last Admin (Calcium Gluconate Inj) 1 gm UNSCH PRN IV PUSH 03/29/17 20:45 (Bicitra Liq) 30 ml VALIDATION SCIENTIST PO 03/29/17 21:00 04/02/17 20:59 03/29/17 22:06 Cefazolin Sodium/ Dextrose 50 ml @ 100 mls/hr VALIDATION SCIENTIST IV 03/29/17 21:45 04/02/17 21:44 03/29/17 22:06 (NS Flush) 2 ml BID IV FLUSH 03/30/17 09:00 04/01/17 09:00 (NS Flush) 2 ml UNSCH PRN IV FLUSH 03/29/17 23:15 (Mylicon Chew) 80 mg QID PRN PO 03/29/17 23:15 03/31/17 07:51 (Zofran Inj) 4 mg Q6HR PRN IV PUSH 03/30/17 14:00 Magnesium Sulfate 1,000 ml @ 12.5 mls/hr Q24H IV 03/30/17 13:35 03/30/17 13:35 (Roxicodone) 5 mg Q4H PRN PO 04/01/17 12:00 04/02/17 08:52 (Roxicodone) 10 mg Q4H PRN PO 04/01/17 12:00 04/01/17 19:57 Sodium Chloride 1,000 ml @ 84 mls/hr [id number] IV 04/01/17 16:45 04/01/17 17:22 Assessment/Plan Problem List: (1) delivery delivered ICD Codes: O82 - Encounter for delivery without indication Status: Resolved (2) HELLP syndrome ICD Codes: O14.20 - HELLP syndrome (HELLP), unspecified trimester Status: Acute (3) Severe pre-eclampsia ICD Codes: O14.10 - Severe pre-eclampsia, unspecified trimester Status: Resolved (4) 38 weeks gestation of ICD Codes: Z3A.38 - 38 weeks gestation of Status: Resolved (5) Advanced maternal age in multigravida ICD Codes: O09.529 - Supervision of elderly multigravida, unspecified trimester Status: Acute (6) NANCY (acute kidney injury) ICD Codes: N17.9 - Acute kidney failure, unspecified Status: Acute Assessment and Plan 42yo G8 now P8 delivered via POD #2 due to severe preeclampsia and HELLP syndrome 1. HELLP: Liver enzymes con't to trend down gonzalez, plt levels improving 2. ARF: BUN/Cr remains elevated (44/2.9). Baseline appears to be 15/.72. GFR decreased by more than 75% (last GFR of 17). Nephrology following. Will con't to avoid all NSAIDs, on oxycodone for pain. Receiving IV fluids since yesterday. Monitor daily CMPs. Will continue to follow nephrology recommendations. CECILIA Joyce and Beryl Hui MD R1 Apr 02, 2017 13:12
--- NOTE | 2017-04-02 13:27 | HHI.NPPN ---
Subjective Renal Failure: Acute Interval History She is ambulatory, non oliguric. Renal function is slightly worse today. Eating , on IVF. (Catarina Pritchard) Objective Data Data 04/02/17 04/03/17 19:00 07:00 Output Total 600 ml Balance -600 ml Output Urine Total 600 ml Vital Signs Date Time Temp Pulse Resp B/P (MAP) Pulse Ox O2 Delivery O2 Flow Rate FiO2 04/01/17 21:00 81 137/91 (106) 04/01/17 19:04 98.0 76 16 161/84 (109) 04/01/17 13:30 98.6 71 20 140/84 (102) (Catarina Pritchard) -: 04/02/17 0520 04/02/17 0520 Imaging Last 72 hours Impressions Renal Ultrasound 04/02/17 0000 Signed Impressions: Service Date/Time: Sunday, April 02, 2017 09:48 - CONCLUSION: 1. Mildly enlarged echogenic kidneys without evidence for obstructive uropathy. Differential considerations include diabetic nephropathy, acute glomerulonephritis, HIV nephropathy and less likely leukemia/lymphomatous infiltration. Otf Cagle MD (Catarina Pritchard) Physical Exam General Appearance: Well Developed, No Acute Distress, Comfortable (Catarina Pritchard) Eyes Eye Exam: Pupils Equal (Catarina Pritchard) Throat Throat Exam: Oral Mucosa [place] & Moist (Catarina Pritchard) Pulmonary Resp Exam: Clear Bilaterally, Breath Sounds Equal (Catarina Pritchard) Cardiology CV Exam: Regular, Normal Sinus Rhythm (Catarina Pritchard) Gastrointestinal/Abdomen GI Exam: Soft, Non-Tender GI Remarks lower abdominal incision (Catarina Pritchard) Musculoskeletal MS Exam: Joints Intact, Normal Gait, Good Strength (Catarina Pritchard) Integumentary Skin Exam: Clear, Warm, Dry (Catarina Pritchard) Extremeties Extremities Exam: No Edema, Pedal Pulses Palpable (Catarina Pritchard) Neurologic Neuro Exam: Alert, Awake, Oriented, Speech Clear, Moving All Extremities (Catarina Pritchard) Psychiatric Psych Exam: Appropriate Responses (Catarina Pritchard) Assessment/Plan Discussed Condition With: Patient Problem List: (1) NANCY (acute kidney injury) ICD Codes: N17.9 - Acute kidney failure, unspecified Status: Acute Plan: May be due to HELLP/preeclampis Renal function is slightly worse today She is non oliguric renal US benign continue IVF, reduce rate to 50 cc/hr. stop NSAIDs we expect improvement in upcoming days (2) HELLP syndrome ICD Codes: O14.20 - HELLP syndrome (HELLP), unspecified trimester Status: Acute Plan: s/p cesarian delivery platelet count is improving liver enzymes are improving GI has signed off. (Catarina Pritchard) Plan patient was seen and examined. Agree with above assessment and plan. (Mode Rivera MD) Catarina Pritchard Apr 02, 2017 13:27 Mode Rivera MD Apr 02, 2017 14:24
[2017-04-02] MEDS: MAGNESIUM SULFATE 40 GM PREMIX 1,000 ML IV SCH (13:35)
[2017-04-02] MEDS: SODIUM CHLOR 0.9% 1000 ML INJ 1,000 ML IV SCH (14:55)
[2017-04-03] VITALS (9 sets, daily range): BP systolic 114–159; BP diastolic 72–92; PULSE 80–90; RESP 16–18; TEMP 97.9–99.9
[2017-04-03] MEDS ORDERED: NIFEdipine 10 MG CAP PO SCH (00:15)
[2017-04-03 05:28] LABS: HEMATOCRIT 26.4 % (35.0-46.0); MEAN CELL VOLUME 92.5 FL (80.0-100.0); MEAN CORPUSCULAR HEMOGLOBIN 33.2 PG (27.0-34.0); MEAN CORPUSCULAR HGB CONC 35.9 % (32.0-36.0); PLATELET COUNT 138 TH/MM3 (150-450); RED BLOOD COUNT 2.85 MIL/MM3 (4.00-5.30); RED CELL DISTRIBUTION WIDTH 13.3 % (11.6-17.2); REVIEW FLAG FINAL; WHITE BLOOD COUNT 9.5 TH/MM3 (4.0-11.0)
[2017-04-03 05:55] LABS: ANION GAP 11 MEQ/L (5-15); BICARBONATE 23.1 MEQ/L (21.0-32.0); BLOOD UREA NITROGEN 41 MG/DL (7-18); CHLORIDE 101 MEQ/L (98-107); GLOMERULAR FILTRATION RATE 18 ML/MIN (>89); SODIUM (NA) 135 MEQ/L (136-145)
[2017-04-03 05:57] LABS: ALT (GPT) 201 U/L (10-53); AST (GOT) 67 U/L (15-37)
[2017-04-03 05:59] LABS: ALKALINE PHOSPHATASE 166 U/L (45-117); TOTAL BILIRUBIN ADULT 1.1 MG/DL (0.2-1.0)
--- NOTE | 2017-04-03 14:11 | HHI.NPPN ---
Subjective Renal Failure: Acute Additional Remarks feeling well, no acute complaints. Objective Data Data Vital Signs Date Time Temp Pulse Resp B/P (MAP) Pulse Ox O2 Delivery O2 Flow Rate FiO2 04/03/17 08:20 98.2 86 17 117/72 (87) 04/03/17 06:00 98.7 90 128/78 (95) 04/03/17 01:00 81 04/03/17 00:59 114/74 (87) 04/02/17 23:45 163/92 (115) 04/02/17 23:45 99.9 72 16 04/02/17 23:45 99.0 04/02/17 20:00 159/97 (117) 04/02/17 20:00 98.1 82 18 04/02/17 15:00 99.1 -: 04/03/17 0513 04/03/17 0513 Physical Exam General Appearance: Well Developed, No Acute Distress, Comfortable Eyes Eye Exam: Pupils Equal Throat Throat Exam: Oral Mucosa [place] & Moist Pulmonary Resp Exam: Clear Bilaterally, Breath Sounds Equal Cardiology CV Exam: Regular, Normal Sinus Rhythm Gastrointestinal/Abdomen GI Exam: Soft, Non-Tender Musculoskeletal MS Exam: Joints Intact, Normal Gait, Good Strength Integumentary Skin Exam: Clear, Warm, Dry Extremeties Extremities Exam: No Edema, Pedal Pulses Palpable Neurologic Neuro Exam: Alert, Awake, Oriented, Speech Clear, Moving All Extremities Psychiatric Psych Exam: Appropriate Responses Assessment/Plan Discussed Condition With: Patient Problem List: (1) NANCY (acute kidney injury) ICD Codes: N17.9 - Acute kidney failure, unspecified Status: Acute Plan: May be due to HELLP/preeclampsia Renal function continues to improve, LFTs and platelets improving. She is non oliguric renal US benign Off IVFs now, avoid NSAIDs. Renal function continues to improve, continue to monitor. Check AM BMP (2) HELLP syndrome ICD Codes: O14.20 - HELLP syndrome (HELLP), unspecified trimester Status: Acute Plan: s/p cesarian delivery platelet count is improving liver enzymes are improving GI has signed off. Fabian Lerner MD Apr 03, 2017 14:11
--- NOTE | 2017-04-03 14:44 | HHI.OB ---
Subjective Remarks 42 year old female s/p C/S at 38/5 wks gestation, POD 5. AFVSS. Patient reports she is feeling well. Bleeding is decreasing and pain is well- controlled. She is formula feeding and bonding well with baby. Ambulating without difficulties. She is tolerating a diet without nausea or vomiting. She has had a bowel movement. She has passed gas. Denies chest pain, dysuria, shortness of breath, or calf pain. Denies headache, vision changes/disturbance, abdominal pain. Objective Vitals/I&O Vital Signs Date Time Temp Pulse Resp B/P (MAP) Pulse Ox O2 Delivery O2 Flow Rate FiO2 04/03/17 12:00 99.0 84 18 137/86 (103) 04/03/17 08:20 98.2 86 17 117/72 (87) 04/03/17 06:00 98.7 90 128/78 (95) 04/03/17 01:00 81 04/03/17 00:59 114/74 (87) 04/02/17 23:45 163/92 (115) 04/02/17 23:45 99.9 72 16 04/02/17 23:45 99.0 04/02/17 20:00 159/97 (117) 04/02/17 20:00 98.1 82 18 04/02/17 15:00 99.1 Other Results Item Value Date Time Creatinine 1.74 MG/DL H 03/31/17 0442 Creatinine 2.77 MG/DL H # 04/01/17 05 Creatinine 2.92 MG/DL H 04/02/17 0520 Creatinine 2.79 MG/DL H 04/03/17 0513 Aspartate Amino Transf (AST/SGOT) 501 U/L H 03/31/17 0442 Aspartate Amino Transf (AST/SGOT) 144 U/L H 04/01/17 0522 Aspartate Amino Transf (AST/SGOT) 79 U/L H 04/02/17 0520 Aspartate Amino Transf (AST/SGOT) 67 U/L H 04/03/17 0513 Alanine Aminotransferase (ALT/SGPT) 534 U/L H 03/31/17 0442 Alanine Aminotransferase (ALT/SGPT) 298 U/L H 04/01/17 0522 Alanine Aminotransferase (ALT/SGPT) 229 U/L H 04/02/17 0520 Alanine Aminotransferase (ALT/SGPT) 201 U/L H 04/03/17 0513 Platelet Count 47 TH/MM3 L 03/30/17 1155 Platelet Count 54 TH/MM3 L 03/31/17 0442 Platelet Count 82 TH/MM3 L # 04/01/17 0522 Platelet Count 99 TH/MM3 L 04/02/17 0520 Platelet Count 138 TH/MM3 L # 04/03/17 0513 Hemoglobin 11.5 GM/DL L 03/30/17 1155 Hemoglobin 9.1 GM/DL L # 03/31/17 0442 Hemoglobin 8.4 GM/DL L 04/01/17 0522 Hemoglobin 7.9 GM/DL L 04/02/17 0520 Hemoglobin 9.5 GM/DL L 04/03/17 0513 Objective Remarks GENERAL: Patient resting in bed, in no acute distress CARDIOVASCULAR: NRRR w/o murmur. RESPIRATORY: Clear breath sounds bilaterally ABDOMEN/GI: Abdomen distended. Incision site clean/ dry/ and intact. Significant bruising of skin of pelvis. EXTREMITIES: No cyanosis or edema. Medications and IVs Current Medications Medications (Trade) Dose Ordered Sig/Adama Route Start Time Stop Time Status Last Admin (Calcium Gluconate Inj) 1 gm UNSCH PRN IV PUSH 03/29/17 20:45 (NS Flush) 2 ml BID IV FLUSH 03/30/17 09:00 04/01/17 09:00 (NS Flush) 2 ml UNSCH PRN IV FLUSH 03/29/17 23:15 (Mylicon Chew) 80 mg QID PRN PO 03/29/17 23:15 03/31/17 07:51 (Zofran Inj) 4 mg Q6HR PRN IV PUSH 03/30/17 14:00 Magnesium Sulfate 1,000 ml @ 12.5 mls/hr Q24H IV 03/30/17 13:35 03/30/17 13:35 (Roxicodone) 5 mg Q4H PRN PO 04/01/17 12:00 04/02/17 18:34 (Roxicodone) 10 mg Q4H PRN PO 04/01/17 12:00 04/03/17 06:27 Assessment/Plan Problem List: (1) delivery delivered ICD Codes: O82 - Encounter for delivery without indication Status: Resolved (2) HELLP syndrome ICD Codes: O14.20 - HELLP syndrome (HELLP), unspecified trimester Status: Acute (3) Severe pre-eclampsia ICD Codes: O14.10 - Severe pre-eclampsia, unspecified trimester Status: Resolved (4) 38 weeks gestation of ICD Codes: Z3A.38 - 38 weeks gestation of Status: Resolved (5) Advanced maternal age in multigravida ICD Codes: O09.529 - Supervision of elderly multigravida, unspecified trimester Status: Acute (6) NANCY (acute kidney injury) ICD Codes: N17.9 - Acute kidney failure, unspecified Status: Acute Assessment and Plan 42yo delivered via POD #5 due to severe preeclampsia and HELLP syndrome 1. HELLP: Liver enzymes con't to trend down gonzalez, plt levels improving 2. ARF: BUN/Cr remains elevated (44/2.9). Baseline appears to be 15/.72. GFR decreased by more than 75% (last GFR of 17). Nephrology following, appreciate recommendations. Will cont to avoid all NSAIDs; on oxycodone for pain. Receiving IV fluids since 04/01. Monitor daily CMPs. Candelario Meade MD R2 Apr 03, 2017 14:44
[2017-04-03] MEDS: NIFEdipine 30 MG SUSTAINED RELEASE TAB PO SCH (17:24)
[2017-04-04] VITALS: BP 133/87; PULSE 94; RESP 3; TEMP 98.2
[2017-04-04 02:43] VITALS: BP 124/80; PULSE 89; RESP 18
[2017-04-04 05:59] LABS: HEMATOCRIT 23.6 % (35.0-46.0); MEAN CELL VOLUME 92.6 FL (80.0-100.0); MEAN CORPUSCULAR HEMOGLOBIN 33.6 PG (27.0-34.0); MEAN CORPUSCULAR HGB CONC 36.3 % (32.0-36.0); PLATELET COUNT 156 TH/MM3 (150-450); RED BLOOD COUNT 2.55 MIL/MM3 (4.00-5.30); RED CELL DISTRIBUTION WIDTH 13.3 % (11.6-17.2); REVIEW FLAG FINAL; WHITE BLOOD COUNT 9.9 TH/MM3 (4.0-11.0)
[2017-04-04 06:26] LABS: BICARBONATE 24.4 MEQ/L (21.0-32.0); POTASSIUM 4.1 MEQ/L (3.5-5.1)
[2017-04-04 06:28] LABS: INDIRECT BILIRUBIN 0.7 MG/DL (0.0-0.8); TOTAL BILIRUBIN ADULT 1.1 MG/DL (0.2-1.0)
[2017-04-04] MEDS ORDERED: FERROUS SULFATE 325 MG (65 MG ELEMENTAL IRON) TAB PO SCH (09:00)
[2017-04-04 09:30] VITALS: BP 122/80; PULSE 88; RESP 20; TEMP 99.5
[2017-04-04] MEDS: NIFEdipine 30 MG SUSTAINED RELEASE TAB PO SCH (09:32)
[2017-04-04] MEDS ORDERED: NIFE30TA8 PO (10:24)
[2017-04-04] MEDS ORDERED: OXYC-392 PO (10:24)
[2017-04-04] MEDS ORDERED: IBUP-232 PO (10:24)
--- NOTE | 2017-04-04 10:25 | HHI.DCPOC ---
Discharge Care Plan Diagnosis: (1) HELLP syndrome (2) Severe pre-eclampsia (3) NANCY (acute kidney injury) (4) delivery delivered Report Symptoms to Your Doctor -Temperature above 100.5 degrees -Redness, of incision or excessive or foul smelling drainage -Unusual pain or calf pain -Increased vaginal bleeding -Painful or difficulty urinating -Feelings of extreme sadness or anxiety after 2 weeks Goals to Promote Your Health * To prevent worsening of your condition and complications * To maintain your health at the optimal level Directions to Meet Your Goals Take your medications as prescribed Follow your dietary instruction Follow activity as directed Ensure plenty of rest for recovery Drink fluids for hydration Keep your appointments as scheduled Take your immunizations and boosters as scheduled If your symptoms worsen call your PCP, if no PCP go to Urgent Care Center or Emergency Room Smoking is Dangerous to Your Health. Avoid second hand smoke Call the 24-hour crisis hotline for domestic abuse at Candelario Meade MD R2 Apr 04, 2017 10:25
--- NOTE | 2017-04-04 11:33 | HHI.OB ---
Subjective Remarks 42 year old female s/p C/S at 38/5 wks gestation, POD 6. AFVSS. Patient reports she is feeling well. Bleeding is decreasing and pain is well- controlled. She is formula feeding and bonding well with baby. Ambulating without difficulties. She is tolerating a diet without nausea or vomiting. She has had a bowel movement. She has passed gas. Denies chest pain, dysuria, shortness of breath, or calf pain. Denies headache, abdominal pain, vision changes. (Candelario Meade MD R2) Remarks Patient seen and evaluated with resident under direct supervision, agree with assessment and plan. (Jose Reyes MD) Objective Vitals/I&O Vital Signs Date Time Temp Pulse Resp B/P (MAP) Pulse Ox O2 Delivery O2 Flow Rate FiO2 04/04/17 09:30 99.5 88 20 122/80 (94) 04/04/17 02:43 89 18 124/80 (95) 04/04/17 00:00 98.2 94 3 133/87 (102) 04/03/17 20:00 97.9 88 18 159/85 (109) 04/03/17 18:20 83 156/92 (113) 04/03/17 18:20 99.6 18 04/03/17 16:10 80 158/84 (108) 04/03/17 16:10 99.7 16 04/03/17 15:54 159/89 (112) 04/03/17 15:54 99.9 84 16 04/03/17 12:00 99.0 84 18 137/86 (103) Other Results Item Value Date Time Platelet Count 54 TH/MM3 L 03/31/17 0442 Platelet Count 82 TH/MM3 L # 04/01/17 0522 Platelet Count 99 TH/MM3 L 04/02/17 0520 Platelet Count 138 TH/MM3 L # 04/03/17 0513 Platelet Count 156 TH/MM3 04/04/17 0550 Hemoglobin 8.4 GM/DL L 04/01/17 0522 Hemoglobin 7.9 GM/DL L 04/02/17 0520 Hemoglobin 9.5 GM/DL L 04/03/17 0513 Hemoglobin 8.6 GM/DL L 04/04/17 0550 Creatinine 2.77 MG/DL H # 04/01/17 0522 Creatinine 2.92 MG/DL H 04/02/17 0520 Creatinine 2.79 MG/DL H 04/03/17 0513 Creatinine 2.42 MG/DL H 04/04/17 0550 Objective Remarks GENERAL: Patient resting in bed, in no acute distress CARDIOVASCULAR: NRRR w/o murmur. RESPIRATORY: Clear breath sounds bilaterally ABDOMEN/GI: Abdomen distended. Incision site clean/ dry/ and intact. Moderate bruising of skin of pelvis. EXTREMITIES: No cyanosis or edema. Medications and IVs Current Medications Medications (Trade) Dose Ordered Sig/Adama Route Start Time Stop Time Status Last Admin (Calcium Gluconate Inj) 1 gm UNSCH PRN IV PUSH 03/29/17 20:45 (NS Flush) 2 ml BID IV FLUSH 03/30/17 09:00 04/01/17 09:00 (NS Flush) 2 ml UNSCH PRN IV FLUSH 03/29/17 23:15 (Mylicon Chew) 80 mg QID PRN PO 03/29/17 23:15 03/31/17 07:51 (Zofran Inj) 4 mg Q6HR PRN IV PUSH 03/30/17 14:00 04/04/17 02:48 Magnesium Sulfate 1,000 ml @ 12.5 mls/hr Q24H IV 03/30/17 13:35 03/30/17 13:35 (Roxicodone) 5 mg Q4H PRN PO 04/01/17 12:00 04/03/17 21:11 (Roxicodone) 10 mg Q4H PRN PO 04/01/17 12:00 04/04/17 02:47 (Procardia Xl) 30 mg DAILY PO 04/03/17 16:45 04/04/17 09:32 (Ferrous Sulfate) 325 mg BID PO 04/04/17 09:00 04/04/17 09:32 (Candelario eMade MD R2) Assessment/Plan Problem List: (1) delivery delivered ICD Codes: O82 - Encounter for delivery without indication Status: Resolved (2) HELLP syndrome ICD Codes: O14.20 - HELLP syndrome (HELLP), unspecified trimester Status: Acute Qualifiers: Qualified Codes: O14.23 - HELLP syndrome (HELLP), third trimester (3) Severe pre-eclampsia ICD Codes: O14.10 - Severe pre-eclampsia, unspecified trimester Status: Resolved Qualifiers: Qualified Codes: O14.13 - Severe pre-eclampsia, third trimester (4) 38 weeks gestation of ICD Codes: Z3A.38 - 38 weeks gestation of Status: Resolved (5) Advanced maternal age in multigravida ICD Codes: O09.529 - Supervision of elderly multigravida, unspecified trimester Status: Acute (6) NANCY (acute kidney injury) ICD Codes: N17.9 - Acute kidney failure, unspecified Status: Acute Assessment and Plan 42yo delivered via POD #6 due to severe preeclampsia and HELLP syndrome 1. HELLP: Liver enzymes cont to trend downward, plt levels normal. Started on Procardia XL 30 mg daily for BP > 160, continue on discharge. 2. ARF: BUN/Cr remains elevated (44/2.9). Baseline appears to be 15/.72. GFR decreased by more than 75% (last GFR of 17). Nephrology following, appreciate recommendations. Will cont to avoid all NSAIDs; on oxycodone for pain. Per nephrology cleared to discharge today given downtrending LFTs and creatinine with outpatient follow up. Patient to obtain BMP in a week. F/u to be arranged with Dr. Meade. (Candelario Meade MD R2) Candelario Meade MD R2 Apr 04, 2017 11:33 Jose Reyes MD Apr 10, 2017 10:12
[2017-04-04 14:09] VITALS: BP 127/83; PULSE 90; RESP 16; TEMP 99.1
--- NOTE | 2017-04-05 14:51 | HHI.PR ---
Addendum to Inpatient Note Addendum Reason: Additional Documentation Additional Information Spoke to patient via phone; appt arranged in clinic with Dr. Meade on 04/09 at 3:30 PM. Patient made aware. She feels well, having a little low grade fever she thinks and some cramping. No REYNOLDS, vision change, or abdominal pain. Advised her to seek care if symptoms worsen or if REYNOLDS, vision change, or abdominal pain develop. She expressed understanding. She is drinking plenty of water. She is to get labs drawn prior to appointment. (Candelario Meade MD R2) Additional Information Patient seen and evaluated with resident under direct supervision, agree with assessment and plan. (Jose Reyes MD) Candelario Meade MD R2 Apr 05, 2017 14:51 Jose Reyes MD Apr 10, 2017 10:20
== END 2017-04-04 14:45 | disposition home or self-care (01) | DRG 765 ==
LOC: HOBED 19:49 → H2EB 21:09 → H2EA 03-30 00:15 → H1EA 03-31 16:00
PROVIDERS: ADMIT Obstetrics & Gynecology Obstetrics; ATTEND Obstetrics & Gynecology Obstetrics
PROC: 10D00Z1 Extraction of Products of Conception, Low, Open Approach (ICD-10-PCS; principal; 2017-03-29)
PROC: 0UB70ZZ Excision of Bilateral Fallopian Tubes, Open Approach (ICD-10-PCS; 2017-03-29)
DX: O14.24 HELLP syndrome, complicating childbirth (principal); N17.9 Acute kidney failure, unspecified; Z30.2 Encounter for sterilization; Z37.0 Single live birth; Z3A.38 38 weeks gestation of pregnancy; O99.62 Diseases of the digestive system complicating childbirth; K80.20 Calculus of gallbladder without cholecystitis without obstruction; Z23 Encounter for immunization
CPT/HCPCS: 36415; 76705; 76775; 80048; 80053; 80076; 81001; 82140; 83690; 83735; 84550; 85007; 85025; 85027; 85610; 85730; 86900; 86901; 88302; 88307; 90686; 90715; 93005; 96374; 96375; J0690; J2270; J2274; J2405; J2590; J3475; J7030; J7120; Q2038

== ENCOUNTER → 2017-04-08 | Outpatient (CLI) | payer SELFPAY ==
[~2017-04-08] MED LIST changes: +IBUP-232 PO; -LACTATED RINGER'S 1000 ML INJ 1,000 ML IV ONE; -MORPHINE SULFATE PF 5 MG/10 ML VIAL EPIDURAL ONE; +NIFE30TA8 PO; -ONDANSETRON HCL 4 MG/2 ML VIAL IV PUSH ONE; +OXYC-392 PO; -OXYTOCIN 10 UNIT/ML AMP IV ONE
[2017-04-08 10:40] LABS: BICARBONATE 26.6 MEQ/L (21.0-32.0); POTASSIUM 3.1 MEQ/L (3.5-5.1)
== END ==
LOC: CLAB 09:50
PROVIDERS: ATTEND Family Medicine
DX: O14.20 HELLP syndrome (HELLP), unspecified trimester (principal); O14.90 Unspecified pre-eclampsia, unspecified trimester
CPT/HCPCS: 36415; 80048